=== PATIENT | female | born 1960 | race Caucasian/White ===

== ENCOUNTER 2024-08-25 16:56 | Emergency (ER) | payer MEDICAID, SELFPAY ==
[2024-08-25 16:56] VITALS: BMI 24.3
[2024-08-25 17:09] VITALS: BP 97/68; PULSE 90; RESP 20; TEMP 37.6; O2SAT 96
--- NOTE | 2024-08-25 17:12 | XR_ITS ---
Examination: PA lateral chest 2 views Technique: Upright PA lateral chest 2 views Exam date and time: August 25, 2024 1722 hrs. Indications: Chest pain today Findings: Mild prominence of ventricle Mild opacity in the lingular segment Mild vascular congestion No ele pulmonary edema Impression: Scarring versus mild pneumonia in the lingular segment left upper lobe, the appearance should be clinically correlated
--- NOTE | 2024-08-25 17:12 | EKG_ITS ---
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: : 1960 Requested By: Herminio López (ZHEN) Order Number: [id number] Reading MD: Herminio López (LOT ATTENDANT) Measurements Intervals [place] Rate: 73 P: 79 WI: 210 QRS: -65 QRSD: 77 T: 74 QT: 348 QTc: 385 Interpretive Statements SINUS RHYTHM WITH FIRST DEGREE AV BLOCK LOW QRS VOLTAGE [QRS DEFLECTION < 0.5/1.0 mV IN LIMB/CHEST LEADS] POSSIBLE RIGHT VENTRICULAR CONDUCTION DELAY [RSR (QR) IN V1/V2] POSSIBLE ANTERIOR MYOCARDIAL INFARCTION , OF INDETERMINATE AGE [30 ms Q WAVE IN V3/V4, OR R < 0.2 mV IN V4] INFERIOR MYOCARDIAL INFARCTION , PROBABLY OLD [40+ ms Q WAVE AND/OR ST/T ABNORMALITY IN II/aVF] Compared to ECG 08/07/2023 23:31:04 First degree AV block now present Low QRS voltage now present Sinus tachycardia no longer present T-wave abnormality no longer present Possible ischemia no longer present Myocardial infarct finding still present /store/S0/[id number].pdf
--- NOTE | 2024-08-25 17:16 | PD.EDRME ---
Rapid Medical Screening Exam RME Arrival date/time: 08/25/24 16:56 64-year-old female presents to the emergency department today for complaints of shortness of breath Chief Complaint: Shortness of Breath/Dyspnea Time Seen by Provider: 08/25/24 17:03 Vital signs: Vital Signs Temperature 99.6 F 08/25/24 17:09 Pulse Rate 90 08/25/24 17:09 Respiratory Rate 20 08/25/24 17:09 Blood Pressure 97/68 08/25/24 17:09 Pulse Oximetry (%) 96 08/25/24 17:09 Oxygen Delivery Method Nasal Cannula 08/25/24 17:09 Oxygen Flow Rate 2 08/25/24 17:09
--- NOTE | 2024-08-25 17:18 | XR_ITS ---
Examination: Venous duplex lower extremity sonogram, bilateral. Date and time of exam: August 25, 2024 at 1750 hrs. Indications: Bilateral leg swelling beginning 3 days ago Technique: Multiple sonographic images of the deep venous system have been obtained. B-mode/2-D grayscale imaging of vascular structures and Doppler spectral analysis (waveforms) and color performed Both legs are examined. Findings: Deep venous systems do not demonstrate abnormal echogenicity. All visualized deep veins exhibit compressibility. All visualized deep veins exhibit augmentation. Impression: Negative for deep vein thrombosis
[2024-08-25 17:27] LABS: Basophils # (Auto) 0.1 Thou/mm3 (0.0-0.2); Basophils % (Auto) 1 % (0-2.5); Eosinophils # (Auto) 0.2 Thou/mm3 (0.0-0.5); Eosinophils % (Auto) 3 % (0-10); Hemoglobin 9.6 g/dL (12.0-16.0); Immature Granulocytes % (Auto) 0 % (0-0); Immature Granulocytes Auto 0.02 Thou/mm3 (0.00-0.00); Lymphocytes # (Auto) 2.3 Thou/mm3 (1.0-4.8); Lymphocytes % (Auto) 31 % (10-50); Mean Corpuscular HGB Conc 34.3 g/dl (31.0-37.0); Mean Corpuscular Hemoglobin 27.7 pg (25.0-35.0); Mean Corpuscular Volume 81 fL (80-100); Monocytes # (Auto) 0.5 Thou/mm3 (0.0-0.8); Monocytes % (Auto) 7 % (0-12); Neutrophils # (Auto) 4.3 Thou/mm3 (1.8-7.7); Neutrophils % (Auto) 58 % (37-80); Nucleated Red Blood Cell % 0 /100 WBC (0); Platelet Count 250 Thou/mm3 (140-440); RDW Standard Deviation 38.8 fL (36.4-46.3); Red Blood Count 3.47 Miln/mm3 (4.00-5.20); White Blood Count 7.3 Thou/mm3 (3.6-11.0)
[2024-08-25 17:40] LABS: Partial Thromboplastin Time 27.3 Seconds (22.0-36.0); Prothrombin Time 10.6 Seconds (9.0-12.2)
[2024-08-25 17:43] LABS: B-Type Natriuretic Peptide 92 pg/mL (0-100)
[2024-08-25 17:45] LABS: Alanine Aminotransferase 11 U/L (10-49); Albumin/Globulin Ratio 1.7 (1.2-2.2); Alkaline Phosphatase 72 U/L (46-116); Anion Gap 8 (7-16); Aspartate Amino Transferase 22 U/L (0-34); BUN/Creatinine Ratio 19 Ratio (12-20); Bilirubin,Total 0.3 mg/dL (0.3-1.2); Blood Urea Nitrogen 30 mg/dL (9-23); Calcium 8.8 mg/dL (8.3-10.6); Calcium (Corrected) 8.8 mg/dL (8.5-10.1); Carbon Dioxide 24.5 mMol/L (20.0-31.0); Chloride 106 mMol/L (98-107); Creatinine (Component) 1.6 mg/dL (0.6-1.3); Estimated Creatinine Clearance 36.3 mL/min (>60); Globulin 2.4 gm/dL (2.3-3.5); Glucose 131 mg/dL (74-106); Osmolality,Calculated 283 (275-295); Potassium 4.4 mMol/L (3.4-5.1); Sodium 138 mMol/L (136-145); Total Protein 6.4 gm/dL (5.7-8.2); Troponin I < 0.020 ng/mL (0.0-0.045); eGFR 36 See Note
--- NOTE | 2024-08-25 19:21 | PD.EDSOB ---
ED SOB =RME/HPI General Chief Complaint: Shortness of Breath/Dyspnea Stated Complaint: CANT BREATHE, O2 AT 90% CHEST FEELS HEAVY Time Seen by Provider: 08/25/24 17:03 Arrival date/time: 08/25/24 16:56 RME / HPI RME / HPI Narrative: 08/25/24 16:56 64-year-old female presents to the emergency department today for complaints of shortness of breath This section includes all my notes and documentations, including HPI, PE, and ED course. Trever Betancourt MD HPI: 64 year old female here with a week of worsening cough, productive cough, purulent sputum, and dyspnea. With subjective fever, chills, aches, and malaise. No chest pain. No other complaints. ROS: All negative except as documented in HPI. Physical Exam: General: Alert and oriented. Hacking cough noted. Eyes: Conjunctivae and lids clear. ENT: No nasal congestion. Neck: Supple. Heart: RRR. Lungs: No respiratory distress. Moderate decreased air movement with rhonchi and rales. Legs: No clubbing, cyanosis, edema. Skin: Warm and dry. Neuro: Alert and oriented X 3. I reviewed all diagnostic test results. My interpretation of the EKG is sinus sinus rhythm with no ST-T changes. My interpretation of the chest x-ray is increased bronchial markings. Blood tests unremarkable. Covid and Influenza negative. At this point, diagnoses include COPD exacerbation and pneumonia. Treatment here included Rocephin, NS, Azithromycin, Duoneb, and Methylprednisolone. Significant improvement noted. Recommended outpatient treatment. Based on my best medical judgment, made decision no further evaluation or treatment indicated at this time. Patient understands and agrees to the discharge instructions customized and printed, see below. Discharge instructions from Dr. Betancourt: --No physical exertion for 3 days to help rest the lungs. ?No smoking or exposure to smoking or pets or dust or cold or humidity. --Zithromax and cefdinir to kill the germs causing the pneumonia. --Prednisone to help decrease the swelling in the airways. --Albuterol 2 puffs or neb treatment every 4-6 hours for 3 days to help keep the airways open. Then as needed for cough or shortness of breath. --See a private doctor next week for recheck if not completely better. --Seek immediate medical care with worsening or with any concerns. Trever Betancourt MD Related Data Home Medications ?Medication ?Instructions ?Recorded ?Confirmed ipratropium 20 mcg-albuterol 100 1 puff inhalation Q4H PRN Wheezing 05/02/23 08/06/23 mcg/actuation mist for inhalation (Combivent Respimat) albuterol sulfate 90 mcg/actuation 1 puff inhalation PRN PRN RESCUE 08/06/23 08/06/23 aerosol inhaler INHALER apixaban 5 mg tablet (Eliquis) 5 mg PO BID 08/06/23 08/06/23 clonidine HCl 0.1 mg tablet 0.1 mg PO DAILY 08/06/23 08/06/23 Held on 08/12/23. Instructions: Resume on 08/19/23. BP controlled, started Entresto Previous Rx's ?Medication ?Instructions ?Recorded fluticasone fur. 100 mcg-umeclid 1 inh inhalation QDAY 30 days #60 05/08/23 62.5 mcg-vilant 25 mcg ea inhalat.powder (Trelegy Ellipta) azithromycin 500 mg tablet 500 mg PO QDAY 3 days #3 tabs 08/25/24 (Zithromax TRI-SNOW) cefdinir 300 mg capsule 300 mg PO BID #14 caps 08/25/24 prednisone 50 mg tablet 50 mg PO BID 3 days #6 tabs 08/25/24 Allergies Allergy/AdvReac Type Severity Reaction Status Date / Time blueberry Allergy Verified 08/25/24 16:59 coconut Allergy Verified 08/25/24 16:59 Review of Systems Review of Systems Systems Reviewed: All systems reviewed, normal except as documented Past Medical History Past Medical History NEUROLOGIC: Negative Seizures CARDIAC: Positive Peripheral Vascular Disease (pain and decreased blood flow to legs) and Hypertension; Negative Congestive Heart Failure or Hypotension RESPIRATORY: Positive Chronic Obstructive Pulmonary Disease (COPD) GENITOURINARY: Negative Renal Disease ENDOCRINE: Negative Diabetes Mellitus Type 1 or Diabetes Mellitus Type 2 OTHER HISTORY: Negative Blood Transfusions or Anesthesia Reactions Family History FAMILY HISTORY: Positive Family Cardiac Disorders; Negative Family Psychiatric Problems, Family Respiratory Disorders or Family Gastrointestinal Problems Surgical History SURGICAL: Positive Vascular Surgery (stent to right groin to increase blood flow to leg) and Hysterectomy Social History SMOKING STATUS: Former smoker ED Exam Narrative Physical exam: As noted in HPI. Course Course Course Narrative: CXR is ordered for determining the etiology of shortness of breath. Quality Measures none Orders Category Date Time Status Bedside COVID-19 Antigen Test NOW Care 08/25/24 17:15 Completed Bedside Influenza A&B Antigen Test NOW Care 08/25/24 17:15 Completed EKG (ED ONLY) *Do not use* NOW Care 08/25/24 17:12 Completed Saline [Insert IV] NOW Care 08/25/24 19:28 Completed EKG (ED Only) Stat Exams 08/25/24 17:12 Draft US venous doppler LE BI Stat Exams 08/25/24 17:18 Completed XR chest 2V Stat Exams 08/25/24 17:12 Completed ABG [Arterial Blood Gas] Stat Lab 08/25/24 20:16 Completed B-Type Natriuretic Peptide Stat Lab 08/25/24 17:20 Completed CBC Stat Lab 08/25/24 17:20 Completed Comprehensive Metabolic Panel Stat Lab 08/25/24 17:20 Completed Magnesium Stat Lab 08/25/24 17:20 Completed Partial Thromboplastin Time Stat Lab 08/25/24 17:20 Completed Prothrombin Time with INR Stat Lab 08/25/24 17:20 Completed Troponin I Stat Lab 08/25/24 17:20 Completed Albuterol/Ipratr Rt Nay [Duoneb Rt Nay] Med 08/25/24 19:28 Discontinued 3 ml INH X1 ONE Azithromycin Inj [Zithromax Inj] 500 mg Med 08/25/24 19:28 Discontinued Sodium Chloride 0.9% 250 ml [Ns] 250 ml IV X1 MethylPREDNISolone.* [SoluMEDROL Inj] Med 08/25/24 19:28 Discontinued 125 mg IVP X1 ONE Sodium Chloride 0.9% 1000 ml [Ns] 1,000 ml Med 08/25/24 19:28 Discontinued IV 999 mls/hr cefTRIAXone [Rocephin] 1,000 mg Med 08/25/24 19:28 Discontinued SODIUM CHLORIDE 0.9% (Popper) [Ns 0.9% (P)] 50 ml IV X1 Vital Signs Vital signs: Vital Signs Temperature 99.6 F 08/25/24 17:09 Pulse Rate 90 08/25/24 17:09 Respiratory Rate 20 08/25/24 17:09 Blood Pressure 97/68 08/25/24 17:09 Pulse Oximetry (%) 96 08/25/24 17:09 Oxygen Delivery Method Nasal Cannula 08/25/24 17:09 Oxygen Flow Rate 2 08/25/24 17:09 Shortness of Breath / Dyspnea Patient data External records reviewed:: [facility] previous records (Per chart review, patient was admitted here on 08/06/23 for a fever.) Clinical information provided by:: patient Social determinants that could affect healthcare access:: none Patient has the following chronic illnesses:: COPD, HTN How is presenting disease/condition affected by chronic disease/condition?: exacerbated by Evaluation data The following diagnostics were reviewed and interpreted by me:: lab results, radiology exam(s) and EKG tracing(s) Lab and/or radiology exams considered but not ordered:: none Interpretation Summary: Pneumonia, COPD exacerbation Medications / Prescriptions Medications or Prescriptions considered but not ordered:: none Medication administrations:: Medication Administration History Discontinued Medications Albuterol/Ipratropium (Albuterol/Ipratropium (Duoneb) Rt Nay 3 Ml Nebu) 3 ml INH X1 ONE Stop: 08/25/24 19:29 Last Admin: 08/25/24 19:52 Dose: 3 ml Documented By: DARIAN Ceftriaxone Sodium 1,000 mg/ (Sodium Chloride) 50 mls @ 100 mls/hr IV X1 ONE Stop: 08/25/24 19:57 Last Infusion: 08/25/24 21:09 Dose: Infused Documented By: Admin: 08/25/24 20:25 Dose: 100 mls/hr Documented By: IRAIS Sodium Chloride (Ns) 1,000 mls @ 999 mls/hr IV .Q1H1M ONE Stop: 08/25/24 20:28 Last Admin: 08/25/24 20:21 Dose: 999 mls/hr Documented By: IRAIS Azithromycin 500 mg/ Sodium (Chloride) 250 mls @ 250 mls/hr IV X1 ONE Stop: 08/25/24 20:27 Last Infusion: 08/25/24 22:19 Dose: Infused Documented By: Admin: 08/25/24 21:08 Dose: 250 mls/hr Documented By: IRAIS Methylprednisolone Sodium Succinate (Methylprednisolone Sod Succ 62.5 Mg/Ml 2ml Vial) 125 mg IVP X1 ONE Stop: 08/25/24 19:29 Last Admin: 08/25/24 20:21 Dose: 125 mg Documented By: JNL Rocephin, NS, Azithromycin, Duoneb, Methylprednisolone Consultations Consultation(s) initiated? (list below): No Diagnosis Shortness of Breath Differential Diagnosis: acute exacerbation of chronic obstructive airways disease, congestive heart failure, community acquired pneumonia, asthma with exacerbation and pulmonary embolism Most likely diagnosis given after review of the tests above:: Pneumonia, COPD exacerbation Admission Indicated Admission indicated?: not indicated Explain why admission is indicated or not indicated:: No criteria for admission. Admission Request Was there a request for admission?: No Disposition Plan Disposition Plan: Discharge Discharge Attestation Discharge Attestation: The patient and all family members were given an opportunity to ask questions and understood the discharge instructions. Discharge instructions specifically effects, indications for sooner follow up or return to the emergency department, and the expected course of current diagnosis. Patient condition: Stable Discharge Plan Plan Patient Disposition: HOME (Self Care) Prescriptions/Referrals Prescriptions/Med Rec: New prednisone 50 mg tablet 50 mg PO BID 3 Days Qty: 6 0RF cefdinir 300 mg capsule 300 mg PO BID Qty: 14 0RF azithromycin [Zithromax TRI-SNOW] 500 mg tablet 500 mg PO QDAY 3 Days Qty: 3 0RF No Action Combivent Respimat 20-100 mcg/actuation Mist 1 puff INHALATION Q4H PRN (Reason: Wheezing) Trelegy Ellipta 100-62.5-25 mcg blister with device 1 inh inhalation QDAY 30 Days Qty: 60 3RF clonidine HCl 0.1 mg tablet 0.1 mg PO DAILY Patient Comments: TAKE 1 TABLET BY MOUTH TWICE A DAY albuterol sulfate 90 mcg/actuation HFA aerosol inhaler 1 puff INHALATION PRN PRN (Reason: RESCUE INHALER ) Patient Comments: INHALE 2 PUFFS EVERY 4 TO 6 HOURS NEEDED Eliquis 5 mg tablet 5 mg PO BID Patient Comments: TAKE 1 TABLET BY MOUTH TWICE A DAY FOR 30 DAYS Referrals: No Primary/Family,Physician [Primary Care Provider] - In 1 week Problem List Clinical Impression: Pneumonia, COPD exacerbation Patient/Caregiver Discharge Instructions Discharge Activity: activity as tolerated Education Materials: ED COPD Flare, ED Pneumonia (Adult) Additional Instructions: Discharge instructions from Dr. Betancourt: --No physical exertion for 3 days to help rest the lungs. ?No smoking or exposure to smoking or pets or dust or cold or humidity. --Zithromax and cefdinir to kill the germs causing the pneumonia. --Prednisone to help decrease the swelling in the airways. --Albuterol 2 puffs or neb treatment every 4-6 hours for 3 days to help keep the airways open. Then as needed for cough or shortness of breath. --See a private doctor next week for recheck if not completely better. --Seek immediate medical care with worsening or with any concerns. Print Language: Citizen Of [place] Stand Alone Forms: [employer] Award Info., Patient Portal Info Letter
[2024-08-25 19:36] VITALS: BP 159/91; PULSE 82; RESP 20; TEMP 36.9; O2SAT 95
[2024-08-25] MEDS: ALBUTEROL/IPRATROPIUM (Duoneb) RT SOL 3 ML NEBU INH (19:52)
[2024-08-25 19:56] VITALS: PULSE 72; RESP 20; O2SAT 98
[2024-08-25] MEDS: MethylPREDNISolone SOD SUCC 62.5 MG/ML 2ML VIAL 125 MG IVP (20:21)
[2024-08-25] MEDS: SODIUM CHLORIDE 0.9% 1000 ML 1,000 ML 999 ML IV (20:21)
[2024-08-25 20:25] LABS: Base Excess 0 (-3-3); HCO3 25 mEq/L (20-26); Inspired Oxygen, FIO2 100 %; O2 Saturation 93 % (91-98); PCO2 44 mmHg (32.0-48.0); PO2 63 mmHg (83-108); pH, Arterial 7.37 (7.35-7.45)
[2024-08-25] MEDS: cefTRIAXone 1,000 MG in SODIUM CHLORIDE 0.9% (Popper) 50 ML 100 MG IV (20:25)
[2024-08-25 20:26] LABS: Allen Test Performed/OK; Puncture Site Right Radial
[2024-08-25] MEDS: AZITHROMYCIN INJ 500 MG in SODIUM CHLORIDE 0.9% 250 ML 250 ML 250 MG IV (21:08)
[2024-08-25 23:10] VITALS: BP 152/82; PULSE 70; RESP 22; TEMP 36.4; O2SAT 96
== END 2024-08-25 23:11 | disposition home or self-care (01) ==
PROVIDERS: Nurse Practitioner Primary Care; Emergency Provider Emergency Medicine
DX: J44.1 Chronic obstructive pulmonary disease with (acute) exacerbation (principal); J18.9 Pneumonia, unspecified organism; J44.0 Chronic obstructive pulmonary disease with (acute) lower respiratory infection; I10 Essential (primary) hypertension; I73.9 Peripheral vascular disease, unspecified; Z95.820 Peripheral vascular angioplasty status with implants and grafts; Z87.891 Personal history of nicotine dependence
CPT/HCPCS: 36415; 36600; 71046; 80053; 82803; 83735; 83880; 84484; 85025; 85610; 85730; 87400; 87811; 93005; 93970; 94640; 96365; 96367; 96375; 99284; A9270; J0456; J0696; J2919; J7030; J7050

== ENCOUNTER 2024-11-30 14:21 | Emergency (ER) | payer MEDICAID, SELFPAY ==
[2024-11-30] VITALS (7 sets, daily range): BP systolic 113–137; BP diastolic 75–95; PULSE 71–115; RESP 15–20; TEMP 36.6–38.8; O2SAT 94–100; BMI 24.5
--- NOTE | 2024-11-30 14:39 | XR_ITS ---
Examination: AP lateral chest 2 views TECHNIQUE: Upright AP lateral chest 2 views November 30, 2024 at 1445 hours INDICATIONS: Coughing shortness of breath today FINDINGS: Normal heart size Moderate hyperexpansion No pneumonia or pulmonary edema IMPRESSION: COPD with moderate hyperexpansion
--- NOTE | 2024-11-30 14:39 | PD.EDRME ---
Rapid Medical Screening Exam RME Arrival date/time: 11/30/24 14:21 64-year-old female with history of COPD presents to the emergency department today for complaints of cough, congestion, fever and generalized bodyaches Sepsis protocol initiated Chief Complaint: Fever Time Seen by Provider: 11/30/24 14:35 Vital signs: Vital Signs Temperature 101.8 F H 11/30/24 14:34 Pulse Rate 115 H 11/30/24 14:34 Respiratory Rate 20 11/30/24 14:34 Blood Pressure 113/75 11/30/24 14:34 Pulse Oximetry (%) 96 11/30/24 14:34 Oxygen Delivery Method Room Air 11/30/24 14:34
[2024-11-30] MEDS: ACETAMINOPHEN 500 MG TABLET 1000 MG PO (14:50)
[2024-11-30 15:11] LABS: Lactate (Lactic Acid) 2.0 mMol/L (0.4-2.0)
[2024-11-30 15:13] LABS: Basophils # (Auto) 0.1 Thou/mm3 (0.0-0.2); Basophils % (Auto) 1 % (0-2.5); Eosinophils # (Auto) 0.0 Thou/mm3 (0.0-0.5); Eosinophils % (Auto) 0 % (0-10); Hematocrit 29.1 % (36.0-46.0); Hemoglobin 9.6 g/dL (12.0-16.0); Immature Granulocytes Auto 0.04 Thou/mm3 (0.00-0.00); Lymphocytes # (Auto) 0.8 Thou/mm3 (1.0-4.8); Lymphocytes % (Auto) 8 % (10-50); Mean Corpuscular HGB Conc 33.0 g/dl (31.0-37.0); Mean Corpuscular Hemoglobin 22.5 pg (25.0-35.0); Mean Corpuscular Volume 68 fL (80-100); Monocytes # (Auto) 0.6 Thou/mm3 (0.0-0.8); Monocytes % (Auto) 6 % (0-12); Neutrophils # (Auto) 8.7 Thou/mm3 (1.8-7.7); Neutrophils % (Auto) 85 % (37-80); Nucleated Red Blood Cell # 0.00 Thou/mm3 (0.00-0.00); Nucleated Red Blood Cell % 0 /100 WBC (0); Platelet Count 346 Thou/mm3 (140-440); RDW Standard Deviation 36.4 fL (36.4-46.3); Red Blood Count 4.27 Miln/mm3 (4.00-5.20); White Blood Count 10.2 Thou/mm3 (3.6-11.0)
[2024-11-30 15:35] LABS: Collection Type, Urine Clean Catch; RBC,Urine 0 /hpf (0-3)
[2024-11-30 15:37] LABS: Alanine Aminotransferase 16 U/L (10-49); Albumin, Serum 4.9 gm/dL (3.4-4.8); Albumin/Globulin Ratio 1.7 (1.2-2.2); Alkaline Phosphatase 87 U/L (46-116); Anion Gap 13 (7-16); Aspartate Amino Transferase 20 U/L (0-34); BUN/Creatinine Ratio 12 Ratio (12-20); Bilirubin,Total 0.5 mg/dL (0.3-1.2); Blood Urea Nitrogen 22 mg/dL (9-23); Calcium 10.1 mg/dL (8.3-10.6); Calcium (Corrected) 10.1 mg/dL (8.5-10.1); Carbon Dioxide 25.5 mMol/L (20.0-31.0); Chloride 104 mMol/L (98-107); Creatinine (Component) 1.9 mg/dL (0.6-1.3); Estimated Creatinine Clearance 30.6 mL/min (>60); Globulin 2.9 gm/dL (2.3-3.5); Glucose 139 mg/dL (74-106); Osmolality,Calculated 288 (275-295); Potassium 4.7 mMol/L (3.4-5.1); Procalcitonin 0.06 ng/ml (0.0-0.49); Sodium 142 mMol/L (136-145); Total Protein 7.8 gm/dL (5.7-8.2); eGFR 29 See Note
[2024-11-30 15:45] LABS: Bacteria,Urine Rare; Bilirubin,Urine Negative (Negative); Blood,Urine Negative (Negative); Clarity,Urine Clear (Clear/Hazy); Color,Urine Lt-Yellow (Lt Yel-Yel); Glucose, Urine Negative (Negative); Ketones,Urine Negative (Negative); Leukocyte Esterase,Urine Negative (Negative); Nitrite,Urine Negative (Negative); PH,Urine 7.0 (5.0-7.0); Protein,Urine Negative (Neg - Trace); Specific Gravity,Urine 1.008 (1.001-1.035); Squamous Epithelial Cell,Urine < 1 /hpf (0-5); Urobilinogen,Urine Negative mg/dL (0.0-1.0); WBC,Urine < 1 /hpf (0-5)
--- NOTE | 2024-11-30 15:46 | PD.EDFEVER ---
ED Fever RME/HPI General Chief Complaint: Fever Stated Complaint: FEVER, ACHES, DIZZY, SOB Time Seen by Provider: 11/30/24 14:35 Arrival date/time: 11/30/24 14:21 RME / HPI RME / HPI Narrative: 11/30/24 14:21 64-year-old female with history of COPD presents to the emergency department today for complaints of cough, congestion, fever and generalized bodyaches Sepsis protocol initiated DR. CONTRERAS MAIN ED EVALUATION: 64 year old female with history of COPD, with use of oxygen PRN, bronchitis, presents to the ED for evaluation of fevers, body aches, cough, and shortness of breath beginning today. Reports yesterday she felt fatigued and had a sore throat otherwise 2 days ago was at her usual state of health. Reports using Albuterol inhalers as needed and did not give herself a treatment today. Denies chest pain, abdominal pain, vomiting, diarrhea, or urinary symptoms. Denies current use of steroids. However, does report history of Prednisone use in the past. Related Data Home Medications ?Medication ?Instructions ?Recorded ?Confirmed ipratropium 20 mcg-albuterol 100 1 puff inhalation Q4H PRN Wheezing 05/02/23 08/06/23 mcg/actuation mist for inhalation (Combivent Respimat) albuterol sulfate 90 mcg/actuation 1 puff inhalation PRN PRN RESCUE 08/06/23 08/06/23 aerosol inhaler INHALER apixaban 5 mg tablet (Eliquis) 5 mg PO BID 08/06/23 08/06/23 clonidine HCl 0.1 mg tablet 0.1 mg PO DAILY 08/06/23 08/06/23 Held on 08/12/23. Instructions: Resume on 08/19/23. BP controlled, started Entresto Previous Rx's ?Medication ?Instructions ?Recorded fluticasone fur. 100 mcg-umeclid 1 inh inhalation QDAY 30 days #60 05/08/23 62.5 mcg-vilant 25 mcg ea inhalat.powder (Trelegy Ellipta) cefdinir 300 mg capsule 300 mg PO BID #14 caps 08/25/24 doxycycline hyclate 100 mg capsule 100 mg PO BID #14 caps 11/30/24 prednisone 50 mg tablet 50 mg PO QDAY #3 tabs 11/30/24 Allergies Allergy/AdvReac Type Severity Reaction Status Date / Time blueberry Allergy Verified 11/30/24 14:22 coconut Allergy Verified 11/30/24 14:22 Review of Systems Review of Systems Systems Reviewed: All systems reviewed, normal except as documented Past Medical History Past Medical History NEUROLOGIC: Negative Seizures CARDIAC: Positive Peripheral Vascular Disease and Hypertension; Negative Congestive Heart Failure or Hypotension RESPIRATORY: Positive Chronic Obstructive Pulmonary Disease (COPD) GENITOURINARY: Negative Renal Disease ENDOCRINE: Negative Diabetes Mellitus Type 1 or Diabetes Mellitus Type 2 OTHER HISTORY: Negative Blood Transfusions or Anesthesia Reactions Family History FAMILY HISTORY: Positive Family Cardiac Disorders; Negative Family Psychiatric Problems, Family Respiratory Disorders or Family Gastrointestinal Problems Surgical History SURGICAL: Positive Vascular Surgery and Hysterectomy Social History SMOKING STATUS: Former smoker Course Quality Measures Current suspected stage: sepsis Possible source: pulmonary Blood cultures ordered: completed in ED Antibiotic ordered: Yes Pertinent labs: 11/30/24 14:45 Lactic Acid 2.0 mMol/L (0.4-2.0) Procalcitonin 0.06 ng/ml (0.0-0.49) sepsis Orders Category Date Time Status Bedside COVID-19 Antigen Test NOW Care 11/30/24 14:39 Active Bedside Influenza A&B Antigen Test NOW Care 11/30/24 14:39 Completed XR chest 2V Stat Exams 11/30/24 14:39 Completed Blood Culture (Lab) Stat Lab 11/30/24 15:06 Received CBC Stat Lab 11/30/24 14:45 Completed Comprehensive Metabolic Panel Stat Lab 11/30/24 14:45 Completed Lactate (Lactic Acid) Stat Lab 11/30/24 14:45 Completed Procalcitonin Stat Lab 11/30/24 14:45 Completed Urinalysis Stat Lab 11/30/24 15:25 Completed Urine Culture Stat Lab 11/30/24 15:25 Received Acetaminophen Tab [Tylenol ES Tab] Med 11/30/24 14:39 Discontinued 1,000 mg PO X1 ONE Azithromycin Po [Zithromax PO] Med 11/30/24 15:47 Discontinued 500 mg PO X1 ONE MethylPREDNISolone.* [SoluMEDROL Inj] Med 11/30/24 15:47 Discontinued 125 mg IVP X1 ONE Sodium Chloride 0.9% 1000 ml [Ns] 1,000 ml Med 11/30/24 15:49 Active IV 500 mls/hr cefTRIAXone/D5w 1gm IV premix [Rocephin/D5w 1gm IV Med 11/30/24 15:47 Discontinued premix] 1 gm in 50 ml IV X1 Vital Signs Vital signs: Vital Signs Temperature 101.8 F H 11/30/24 14:34 Pulse Rate 115 H 11/30/24 14:34 Respiratory Rate 20 11/30/24 14:34 Blood Pressure 113/75 11/30/24 14:34 Pulse Oximetry (%) 96 11/30/24 14:34 Oxygen Delivery Method Room Air 11/30/24 14:34 Pulse ox is 96% on room air which is adequate. Fever MDM Narrative MDM Narrative:: IBev, am scribing for and in the presence of Dr. Contreras. Patient denied any chest pain. I interpreted all labs. There is no leukocytosis. Chest x-ray showed no obvious infiltrate. I do not believe this patient to be septic. She was describing fevers and in fact was febrile here in the emergency room. She does have a history of COPD. She states that she no longer smokes cigarettes. Based on her history of COPD it was thought prudent to give the patient Rocephin 1 g IV and azithromycin 500 mg IV. She was hydrated with 500 cc of IV normal saline. She was given Tylenol 1 g p.o. for fever. She was also given Solu-Medrol 125 mg IV and a breathing treatment consisting of 2.5 mg of albuterol and 0.5 mg of Atrovent x 1. She has a nebulizer machine at home. She is to use that machine. Prednisone and doxycycline as prescribed. She is to continue not to smoke. Follow-up with her doctor. Return to ER as needed or if condition worsens. Patient data External records reviewed:: [facility] previous records Clinical information provided by:: patient Social determinants that could affect healthcare access:: none Patient has the following chronic illnesses:: COPD, bronchitis, hx of pneumonia How is presenting disease/condition affected by chronic disease/condition?: exacerbated by Evaluation data The following diagnostics were reviewed and interpreted by me:: lab results and radiology exam(s) Lab and/or radiology exams considered but not ordered:: None Interpretation Summary: Ordering Physician: Maribel NELSON)Herminio NP Date of Service: 11/30/24 Procedure(s): XR chest 2V Accession Number(s): [id number] cc: Maribel (ZHEN),Herminio BROTH SETTER; Bryce Avila MD~ Examination: AP lateral chest 2 views TECHNIQUE: Upright AP lateral chest 2 views November 30, 2024 at 1445 hours INDICATIONS: Coughing shortness of breath today FINDINGS: Normal heart size Moderate hyperexpansion No pneumonia or pulmonary edema IMPRESSION: COPD with moderate hyperexpansion Dictated By: Bryce Avila MD Signed By: <Electronically signed by Bryce Avila MD in OV> 11/30/24 1506 Medications / Prescriptions Medications or Prescriptions considered but not ordered:: None Medication administrations:: Medication Administration History Sodium Chloride (Ns) 1,000 mls @ 500 mls/hr IV .Q2H ONE Stop: 11/30/24 17:48 Last Admin: 11/30/24 16:53 Dose: 500 mls/hr Documented By: MARLEY Discontinued Medications Acetaminophen (Acetaminophen 500 Mg Tablet) 1,000 mg PO X1 ONE Stop: 11/30/24 14:40 Last Admin: 11/30/24 14:50 Dose: 1,000 mg Documented By: PELON Azithromycin (Azithromycin 250 Mg Tablet) 500 mg PO X1 ONE Stop: 11/30/24 15:48 Last Admin: 11/30/24 16:01 Dose: 500 mg Documented By: MARLEY Ceftriaxone Sodium/Dextrose (Rocephin/D5w 1gm Iv Premix) 1 gm in 50 mls @ 100 mls/hr IV X1 ONE Stop: 11/30/24 16:16 Last Admin: 11/30/24 16:53 Dose: 100 mls/hr Documented By: MARLEY Methylprednisolone Sodium Succinate (Methylprednisolone Sod Succ 62.5 Mg/Ml 2ml Vial) 125 mg IVP X1 ONE Stop: 11/30/24 15:48 Last Admin: 11/30/24 16:44 Dose: 125 mg Documented By: MARLEY See above Consultations Consultation(s) initiated? (list below): No Diagnosis Fever Differential Diagnosis: fever of unknown origin, community acquired pneumonia, viral infection, sepsis and influenza Most likely diagnosis given after review of the tests above:: Pneumonia Admission Indicated Admission indicated?: not indicated Admission Request Was there a request for admission?: No Disposition Plan Disposition Plan: Discharge Discharge Attestation Discharge Attestation: The patient and all family members were given an opportunity to ask questions and understood the discharge instructions. Discharge instructions specifically effects, indications for sooner follow up or return to the emergency department, and the expected course of current diagnosis. Patient condition: Stable Discharge Plan Plan Patient Disposition: HOME (Self Care) Prescriptions/Referrals Prescriptions/Med Rec: New doxycycline hyclate 100 mg capsule 100 mg PO BID Qty: 14 0RF prednisone 50 mg tablet 50 mg PO QDAY Qty: 3 0RF No Action Combivent Respimat 20-100 mcg/actuation Mist 1 puff INHALATION Q4H PRN (Reason: Wheezing) Trelegy Ellipta 100-62.5-25 mcg blister with device 1 inh inhalation QDAY 30 Days Qty: 60 3RF cefdinir 300 mg capsule 300 mg PO BID Qty: 14 0RF clonidine HCl 0.1 mg tablet 0.1 mg PO DAILY Patient Comments: TAKE 1 TABLET BY MOUTH TWICE A DAY albuterol sulfate 90 mcg/actuation HFA aerosol inhaler 1 puff INHALATION PRN PRN (Reason: RESCUE INHALER ) Patient Comments: INHALE 2 PUFFS EVERY 4 TO 6 HOURS NEEDED Eliquis 5 mg tablet 5 mg PO BID Patient Comments: TAKE 1 TABLET BY MOUTH TWICE A DAY FOR 30 DAYS Problem List Clinical Impression: Acute exacerbation of chronic obstructive pulmonary disease Patient/Caregiver Discharge Instructions Additional Instructions: Take your medication as prescribed. Continue the albuterol treatments as needed. Follow-up with your doctor. Return to ER as needed or if condition worsens. Print Language: Greek Stand Alone Forms: Arm[employer] Award Info., Patient Portal Info Letter
[2024-11-30] MEDS: AZITHROMYCIN 250 MG TABLET 500 MG PO (16:01)
[2024-11-30] MEDS: MethylPREDNISolone SOD SUCC 62.5 MG/ML 2ML VIAL 125 MG IVP (16:44)
[2024-11-30] MEDS: cefTRIAXone/D5w 1gm IV premix 1 GM/50 ML BAG IV (16:53)
[2024-11-30] MEDS: SODIUM CHLORIDE 0.9% 1000 ML 1,000 ML 500 ML IV (16:53)
== END 2024-11-30 19:13 | disposition home or self-care (01) ==
LOC: SERX 18:23
PROVIDERS: Nurse Practitioner Primary Care; Emergency Provider Emergency Medicine; PCP Physician Assistant
DX: J44.1 Chronic obstructive pulmonary disease with (acute) exacerbation (principal)
CPT/HCPCS: 36415; 71046; 80053; 81001; 83605; 84145; 85025; 87040; 87077; 87086; 87186; 87400; 87811; 96361; 96365; 96375; 99284; J0696; J2919; J7030; A9270

== ENCOUNTER 2024-12-11 10:44 | Inpatient (IN) | payer MEDICAID, SELFPAY ==
[2024-12-11] VITALS (16 sets, daily range): BP systolic 89–111; BP diastolic 52–74; PULSE 57–89; RESP 12–21; TEMP 36.4–37.2; O2SAT 93–100; BMI 24.3
--- NOTE | 2024-12-11 10:51 | EKG_ITS ---
[facility] Test Date: 2024-12-11 Pat Name: СЕРГЕЙ WINTERS Department: Room: - Gender: Female [employer]: : 1960 Requested By: ED Temporary Provider Order Number: [id number] Reading MD: ED Temporary Provider Measurements Intervals [place] Rate: 87 P: 81 [place]: 211 QRS: -62 QRSD: 84 T: 77 QT: 329 QTc: 398 Interpretive Statements SINUS RHYTHM WITH FIRST DEGREE AV BLOCK LEFT AXIS DEVIATION [QRS AXIS < -30] LOW QRS VOLTAGE IN PRECORDIAL LEADS [QRS DEFLECTION < 1.0 mV IN CHEST LEADS] POSSIBLE RIGHT VENTRICULAR CONDUCTION DELAY [RSR (QR) IN V1/V2] POSSIBLE ANTERIOR MYOCARDIAL INFARCTION , PROBABLY OLD [30 ms Q WAVE IN V3/V4, OR R < 0.2 mV IN V4] Compared to ECG 08/25/2024 17:26:16 Left-axis deviation now present Myocardial infarct finding still present /store/S0/[id number]/ecg/[id number].pdf
--- NOTE | 2024-12-11 11:04 | XR_ITS ---
Examination: Chest AP single view Technique one AP portable upright chest single view Date and time: December 11, 2024, 11:53 AM Comparison November 30, 2024 Indication: Chest pain shortness of breath today Findings: Minor prominence left ventricle. No pneumonia or pulmonary edema. Intact osseous structures. Impression: No pneumonia or pulmonary edema
--- NOTE | 2024-12-11 11:04 | PD.EDRME ---
Rapid Medical Screening Exam RME Arrival date/time: 12/11/24 10:44 64-year-old female presents emergency department today for complaint of headache, generalized fatigue and chest pressure Chief Complaint: Chest Pain Vital signs: Vital Signs Temperature 98.9 F 12/11/24 10:53 Pulse Rate 81 12/11/24 10:53 Respiratory Rate 20 12/11/24 10:53 Blood Pressure 89/64 L 12/11/24 10:53 Pulse Oximetry (%) 100 12/11/24 10:53 Oxygen Delivery Method Room Air 12/11/24 10:53
[2024-12-11] MEDS: ONDANSETRON ODT 4 MG TABRAP PO (11:36)
[2024-12-11 12:04] LABS: Collection Type, Urine Clean Catch
[2024-12-11 12:14] LABS: Bilirubin,Urine Negative (Negative); Blood,Urine Negative (Negative); Clarity,Urine Clear (Clear/Hazy); Color,Urine Yellow (Lt Yel-Yel); Glucose, Urine Negative (Negative); Ketones,Urine Negative (Negative); Leukocyte Esterase,Urine Negative (Negative); Nitrite,Urine Negative (Negative); PH,Urine 6.0 (5.0-7.0); Protein,Urine Negative (Neg - Trace); RBC,Urine 4 /hpf (0-3); Specific Gravity,Urine 1.012 (1.001-1.035); Squamous Epithelial Cell,Urine 1 /hpf (0-5); Urobilinogen,Urine Negative mg/dL (0.0-1.0); WBC,Urine 2 /hpf (0-5)
[2024-12-11 12:21] LABS: Lactate (Lactic Acid) 1.7 mMol/L (0.4-2.0)
[2024-12-11 12:26] LABS: Basophils # (Auto) 0.1 Thou/mm3 (0.0-0.2); Basophils % (Auto) 1 % (0-2.5); Eosinophils # (Auto) 0.2 Thou/mm3 (0.0-0.5); Eosinophils % (Auto) 2 % (0-10); Hematocrit 26.6 % (36.0-46.0); Immature Granulocytes Auto 0.04 Thou/mm3 (0.00-0.00); Lymphocytes # (Auto) 2.9 Thou/mm3 (1.0-4.8); Lymphocytes % (Auto) 25 % (10-50); Mean Corpuscular HGB Conc 31.2 g/dl (31.0-37.0); Mean Corpuscular Hemoglobin 21.9 pg (25.0-35.0); Mean Corpuscular Volume 70 fL (80-100); Monocytes # (Auto) 0.7 Thou/mm3 (0.0-0.8); Monocytes % (Auto) 6 % (0-12); Neutrophils # (Auto) 7.8 Thou/mm3 (1.8-7.7); Neutrophils % (Auto) 67 % (37-80); Nucleated Red Blood Cell # 0.00 Thou/mm3 (0.00-0.00); Nucleated Red Blood Cell % 0 /100 WBC (0); Platelet Count 471 Thou/mm3 (140-440); RDW Standard Deviation 38.9 fL (36.4-46.3); Red Blood Count 3.79 Miln/mm3 (4.00-5.20); White Blood Count 11.8 Thou/mm3 (3.6-11.0)
[2024-12-11 12:29] LABS: Hemoglobin 8.3 g/dL (12.0-16.0)
[2024-12-11 12:48] LABS: INR 1.0 (0.9-1.3); Partial Thromboplastin Time 28.1 Seconds (22.0-36.0); Prothrombin Time 11.0 Seconds (9.0-12.2)
[2024-12-11 12:51] LABS: B-Type Natriuretic Peptide 35 pg/mL (0-100)
[2024-12-11 13:03] LABS: Alanine Aminotransferase 8 U/L (10-49); Albumin, Serum 4.2 gm/dL (3.4-4.8); Albumin/Globulin Ratio 1.4 (1.2-2.2); Alkaline Phosphatase 81 U/L (46-116); Anion Gap 10 (7-16); Aspartate Amino Transferase 14 U/L (0-34); BUN/Creatinine Ratio 17 Ratio (12-20); Bilirubin,Total 0.4 mg/dL (0.3-1.2); Blood Urea Nitrogen 33 mg/dL (9-23); Calcium 9.6 mg/dL (8.3-10.6); Calcium (Corrected) 9.6 mg/dL (8.5-10.1); Carbon Dioxide 26.6 mMol/L (20.0-31.0); Chloride 105 mMol/L (98-107); Creatinine (Component) 2.0 mg/dL (0.6-1.3); Estimated Creatinine Clearance 29.0 mL/min (>60); Globulin 2.9 gm/dL (2.3-3.5); Glucose 106 mg/dL (74-106); Magnesium 2.2 mg/dL (1.6-2.6); Osmolality,Calculated 290 (275-295); Potassium 5.2 mMol/L (3.4-5.1); Procalcitonin 0.04 ng/ml (0.0-0.49); Sodium 142 mMol/L (136-145); Total Protein 7.1 gm/dL (5.7-8.2); Troponin I < 0.020 ng/mL (0.0-0.045); eGFR 28 See Note
--- NOTE | 2024-12-11 14:51 | PD.EDADULT ---
ED General RME/HPI General Chief complaint: Chest Pain Stated complaint: DIZZY/COUGH/CXP x 1 WK, ABNORMAL LABS DONE FRIDAY Time Seen by Provider: 12/11/24 14:38 Arrival date/time: 12/11/24 10:44 RME / HPI RME / HPI narrative: 64-year-old female patient with significant history of chronic A-fib, COPD, hypertension, currently taking Plavix aspirin and Eliquis, came in for evaluation regarding dizziness, generalized body weakness, cough, chest pain, has been ongoing for the last 1 week, getting worse. Patient was seen here more than a week ago and was sent home with a diagnosis of COPD exacerbation. Patient denies any vomiting blood denies any blood in the stool. Denies any abdominal pain. Denies any other complaints no medications taken prior to arrival. Patient never had endoscopy or colonoscopy in the past. Related Data Home Medications ?Medication ?Instructions ?Recorded ?Confirmed ipratropium 20 mcg-albuterol 100 1 puff inhalation Q4H PRN Wheezing 05/02/23 08/06/23 mcg/actuation mist for inhalation (Combivent Respimat) albuterol sulfate 90 mcg/actuation 1 puff inhalation PRN PRN RESCUE 08/06/23 08/06/23 aerosol inhaler INHALER apixaban 5 mg tablet (Eliquis) 5 mg PO BID 08/06/23 08/06/23 clonidine HCl 0.1 mg tablet 0.1 mg PO DAILY 08/06/23 08/06/23 Held on 08/12/23. Instructions: Resume on 08/19/23. BP controlled, started Entresto Previous Rx's ?Medication ?Instructions ?Recorded fluticasone fur. 100 mcg-umeclid 1 inh inhalation QDAY 30 days #60 05/08/23 62.5 mcg-vilant 25 mcg ea inhalat.powder (Trelegy Ellipta) cefdinir 300 mg capsule 300 mg PO BID #14 caps 08/25/24 doxycycline hyclate 100 mg capsule 100 mg PO BID #14 caps 11/30/24 prednisone 50 mg tablet 50 mg PO QDAY #3 tabs 11/30/24 Allergies Allergy/AdvReac Type Severity Reaction Status Date / Time blueberry Allergy Severe Vomiting Verified 12/11/24 10:49 coconut Allergy Severe Vomiting Verified 12/11/24 10:49 Review of Systems Review of Systems Narrative Review of Systems: Review of system reviewed and within normal limits except mentioned in HPI ED Exam Narrative Physical exam: VITAL SIGNS: Reviewed. GENERAL APPEARANCE: Alert and interactive, follows commands, no acute distress, HEAD AND FACE: Non-traumatic. ENT: PERRL, pale conjunctiva, eyelid no trauma, Mucous membrane moist. NECK: Supple, nontender, no nuchal rigidity. CHEST: No tenderness, no crepitus, no paradoxical movement, no retractions. LUNGS: Clear, well ventilated, symmetric, no rales, no wheezing, no ronchi, no stridor, good breath sounds bilaterally. HEART: Regular rate, regular rhythm, no murmur, no gallops. ABDOMEN: Soft, positive bowel sounds, nondistended, no guarding, nontender, no rebound, no masses, RECTAL: Deferred. GENITAL: Deferred. NEUROLOGICAL: Gross motor function intact sensory function intact, Appropriate for age. MUSCULOSKELETAL: low back nontender, full range of motion. EXTREMITIES: Nontender, full range of motion. SKIN: Color pale, dry, no rash, no lacerations, no abrasions, no contusions. LYMPHATICS: Deferred. Course Quality Measures none Orders Category Date Time Status Bedside COVID-19 Antigen Test NOW Care 12/11/24 11:03 Active Bedside Influenza A&B Antigen Test NOW Care 12/11/24 11:03 Completed COVID-19 Screening Questionnaire NOW Care 12/11/24 15:11 Active Brush Sander NOW Care 12/11/24 11:03 Active Decision to Admit X1 Care 12/11/24 15:11 Active EKG (ED ONLY) *Do not use* NOW Care 12/11/24 10:51 Completed Transfuse,blood/blood products ONCE Care 12/11/24 14:49 Active Consult to Gastroenterology Stat Cons 12/11/24 14:57 Ordered EKG (ED Only) Stat Exams 12/11/24 10:51 Draft XR chest 1V portable Stat Exams 12/11/24 11:04 Completed B-Type Natriuretic Peptide Stat Lab 12/11/24 12:15 Completed Blood Culture (Lab) Stat Lab 12/11/24 12:15 Received CBC Stat Lab 12/11/24 12:15 Completed Comprehensive Metabolic Panel Stat Lab 12/11/24 12:15 Completed Lactic Acid [Lactate (Lactic Acid)] Stat Lab 12/11/24 12:15 Completed Magnesium Stat Lab 12/11/24 12:15 Completed Partial Thromboplastin Time Stat Lab 12/11/24 12:15 Completed Procalcitonin Stat Lab 12/11/24 12:15 Completed Prothrombin Time with INR Stat Lab 12/11/24 12:15 Completed Troponin I Stat Lab 12/11/24 12:15 Completed Type and Screen Stat Lab 12/11/24 12:15 Results Urinalysis Stat Lab 12/11/24 11:37 Completed prbc [Red Blood Cells] Stat Lab 12/11/24 12:15 Results Ondansetron Odt [Zofran Odt] Med 12/11/24 11:22 Discontinued 4 mg PO X1 ONE Pantoprazole Inj [Protonix Inj] Med 12/11/24 14:49 Discontinued 80 mg IVP X1 ONE cefTRIAXone/D5w 1gm IV premix [Rocephin/D5w 1gm IV Med 12/11/24 14:57 Active premix] 1 gm in 50 ml IV X1 Vital Signs Vital signs: Vital Signs Temperature 98.9 F 12/11/24 10:53 Pulse Rate 81 12/11/24 10:53 Respiratory Rate 20 12/11/24 10:53 Blood Pressure 89/64 L 12/11/24 10:53 Pulse Oximetry (%) 100 12/11/24 10:53 Oxygen Delivery Method Room Air 12/11/24 10:53 Discharge Plan Plan Patient Disposition: Admit Acute Care w/in Hospital Discharge Disposition comment: Stable Prescriptions/Referrals Prescriptions/Med Rec: No Action Combivent Respimat 20-100 mcg/actuation Mist 1 puff INHALATION Q4H PRN (Reason: Wheezing) Trelegy Ellipta 100-62.5-25 mcg blister with device 1 inh inhalation QDAY 30 Days Qty: 60 3RF cefdinir 300 mg capsule 300 mg PO BID Qty: 14 0RF clonidine HCl 0.1 mg tablet 0.1 mg PO DAILY Patient Comments: TAKE 1 TABLET BY MOUTH TWICE A DAY albuterol sulfate 90 mcg/actuation HFA aerosol inhaler 1 puff INHALATION PRN PRN (Reason: RESCUE INHALER ) Patient Comments: INHALE 2 PUFFS EVERY 4 TO 6 HOURS NEEDED Eliquis 5 mg tablet 5 mg PO BID Patient Comments: TAKE 1 TABLET BY MOUTH TWICE A DAY FOR 30 DAYS doxycycline hyclate 100 mg capsule 100 mg PO BID Qty: 14 0RF prednisone 50 mg tablet 50 mg PO QDAY Qty: 3 0RF Referrals: Rivas Guajardo PA-C [Primary Care Provider] - In 1 week Problem List Clinical Impression: Anemia, Acute upper gastrointestinal bleeding Patient/Caregiver Discharge Instructions Discharge Activity: activity as tolerated Print Language: Divehi Stand Alone Forms: Armida Award Info., Patient Portal Info Letter [facility] Narrative [facility] hospital course: 64-year-old female patient with significant history of chronic A-fib, COPD, hypertension, currently taking Plavix aspirin and Eliquis, came in for evaluation regarding dizziness, generalized body weakness, cough, chest pain, has been ongoing for the last 1 week, getting worse. Patient was seen here more than a week ago and was sent home with a diagnosis of COPD exacerbation. Patient denies any vomiting blood denies any blood in the stool. Denies any abdominal pain. Denies any other complaints no medications taken prior to arrival. Patient never had endoscopy or colonoscopy in the past. Patient's workup today significant for hemoglobin of 8.3 hematocrit to 26.6 patient hemoglobin was noted to be 9.69 days ago. Potassium 5.2 creatinine 2.0 BUN of 33. Urinalysis no UTI. Troponin is normal. I personally reviewed and interpreted the x-ray of this patient. There is no acute abnormalities found, no infiltrates no pneumothorax no hemothorax normal chest x-ray. Review of other structures was without significant abnormal findings also. I additionally reviewed the radiologist report and agree with the interpretation. EKG showed sinus rhythm, ventricular rate of 87 bpm, MN interval 211 MS, no ST segment elevation or depression noted. \Patient received 1 unit of blood transfusion, IV Protonix. I consulted Dr. Alvarado, thank you Dr. Alvarado Clinical Information Provided by patient and family Medical Records Reviewed EMS Meds/Rx Considered, not Ordered None EKG EKG Interpretation narrative: See results [facility] Lab Interpretation Lab(s) interpretation(s): See results in [facility] Medication Administration(s) Medication Administration History Ceftriaxone Sodium/Dextrose (Rocephin/D5w 1gm Iv Premix) 1 gm in 50 mls @ 100 mls/hr IV X1 ONE Stop: 12/11/24 15:26 Last Admin: 12/11/24 15:05 Dose: 100 mls/hr Documented By: VL Discontinued Medications Ondansetron HCl (Ondansetron Odt 4 Mg Tabrap) 4 mg PO X1 ONE; Protocol Stop: 12/11/24 11:23 Last Admin: 12/11/24 11:36 Dose: 4 mg Documented By: Pantoprazole Sodium (Pantoprazole Inj 40 Mg Vial) 80 mg IVP X1 ONE Stop: 12/11/24 14:50 Last Admin: 12/11/24 15:04 Dose: 80 mg Documented By: VL Protonix IV, Zofran, Zyprexa IV and 1 unit of packed RBC Consultations/Discussions re: Management Consult #1: Date/time: 12/11/24 3:14 pm Physician, specialty, service, details: Dr. Alvarado GI specialist thank you DrCynthia Diagnosis Differential diagnosis: Anemia, generalized body weakness COPD, upper GI bleed Most likely dx, and/or detailed dx discussion: Anemia, upper GI bleed Dispositon Disposition: Admit Disposition comments: Spoke with hospitalist, who admitted the patient.
[2024-12-11] MEDS: cefTRIAXone/D5w 1gm IV premix 1 GM/50 ML BAG IV (15:05)
--- NOTE | 2024-12-11 15:39 | PC.NURSE ---
PATIENT IN TO ED FOR DIZZINESS,HEADACHE, FATIGUE, AND LOW BLOOD PRESSURE, WELL CHEST PAIN FOR ABOUT 1 WEEK. PATIENT WAS HERE ABOUT 1 WEEK AGO AND PRESCRIBED ANTIBIOTICS AND STEROIDS FOR PNEUMONIA. PATIENT HAS HISTORY OF HIGH BLOOD PRESSURE, CKD STAGE 3, COPD, AND HYSTERECTOMY. PATIENT USES HOME OXYGEN WHEN NEEDED AT HOME. PATIENT ALERT AND ORIENTED X4. STOOL OCCULT PERFORMED BY TERMITE CONTROL SERVICER NATAN POSITIVE. PATIENT AWARE SHE WILL RECEIVE 1 UNIT PRBCS AND BE ADMITTED TO HOSPITAL. VITALS STABLE. PLAN OF CARE ONGOING
[2024-12-11 16:42] LABS: OBS Card Lot # 0124; OBS Developer Lot # 0424; OBS Performed By LOPEV7; OBS QC OK? Yes; Occult Blood, Stool Positive (Negative)
--- NOTE | 2024-12-11 16:54 | PD.RESHP ---
Documentation for date of: 12/11/24 [facility] History of Present Illness History of present illness: Chief Complaints: Generalized weakness and chest pain 64-year-old female patient with significant history of paroxysmal atrial fibrillation/atrial flutter with RVR, diastolic CHF, COPD, acute hypercapanic and hypoxic respiratory failure, 40yr smoking history, opal, prediabetes, HTN, PAD s/p stents in right knee, hx of alcohol abuse, presented to the ED today on 12/11/2024 due to worsening generalized weakness and chest pain. According to the patient, she has been admitted to the ED on 11/30/2024 for viral infection. She was given antibiotics at her discharge. Her fever went away however her generalized weakness started to grow. About a week ago she started to have a dull upper left chest pain that started to get worsened as days go by. Patient noted that she got her stents placed on her right knee for PAD by her vascular surgeon Dr. Thompson in [place]. She was given Plavix on top of her original medication regimen aspirin and Eliquis for upcoming stent placement on her left knee. A few days ago during preop, she was declined for the surgery due to her declining renal function and worsening anemia. Her daughter told her to visit the ED today for assessment. Patient uses oxygen at home but within the last couple days she was breathing fine without any oxygen. Endorses shortness of breath and nausea. Denies headaches dizziness abdominal pain, dysuria, fevers, or chills. In ED, Hemoglobin of 8.3 hematocrit to 26.6 patient hemoglobin was noted to be 9.69 days ago. Potassium 5.2 creatinine 2.0 BUN of 33. Urinalysis no UTI. Troponin is normal. CXR: There is no acute abnormalities found, no infiltrates no pneumothorax no hemothorax normal chest x-ray. Review of other structures was without significant abnormal findings also. EKG showed sinus rhythm, ventricular rate of 87 bpm, VA interval 211 MS, no ST segment elevation or depression noted. Patient received 1 unit of blood transfusion, IV Protonix. Patient will be admitted for management of acute anemia and possible GI bleed. Medical history: As stated above Surgical history: Right knee stent placement for PAD, Hysterectomy many years ago. Allergies: Blueberry and coconut causing vomiting Medications: Pending official med rec Social history: 40years of smoking history quitted 2 years ago. Patient noted she is social drinker, but per past chart, she has hx of alcohol abuse. No illicit drug use. ROS: All 12 systems assessed and the patient denies unless otherwise stated in HPI Exam Vital Signs Temp Pulse Resp BP Pulse Ox O2 Del Method 98.9 F 77 18 111/61 98 Room Air 12/11/24 10:53 12/11/24 14:26 12/11/24 14:25 12/11/24 14:25 12/11/24 14:25 12/11/24 14:25 Narrative Exam General: No acute distress, well nourished Eye: PERRL, EOMI, normal conjunctiva, no scleral icterus HENT: Normocephalic, atraumatic, hearing intact to conversation at normal volume, moist oral mucosa Neck: Supple, non-tender, no JVD, no lymphadenopathy Lungs: Non-labored respirations, symmetric chest rise, Expiratory wheezing noted. Heart: Peripheral pulses intact bilaterally, Regular Rate and Rhythm Abdomen: Soft, non-tender, non-distended Musculoskeletal: Normal range of motion and strength Skin: Skin is warm, dry, no rashes or lesions. Psychiatric: Cooperative, appropriate mood and affect Neuro: Cranial nerves II-XII grossly intact. Strength 5/5 throughout. Sensations intact to light touch. Results: Labs 12/12/24 04:47 12/12/24 04:47 Labs: Short CBC 12/11/24 Range/Units 12:15 WBC 11.8 H (3.6-11.0) Thou/mm3 Hgb 8.3 L (12.0-16.0) g/dL Hct 26.6 L (36.0-46.0) % Plt Count 471 H D (140-440) Thou/mm3 BMP 12/11/24 12:15 Sodium 142 Potassium 5.2 H Chloride 105 Carbon Dioxide 26.6 BUN 33 H Creatinine 2.0 H Glucose 106 Calcium 9.6 Cardiac Enzymes 12/11/24 Range/Units 12:15 Troponin I < 0.020 (0.0-0.045) ng/mL Liver Function 12/11/24 Range/Units 12:15 Total Bilirubin 0.4 (0.3-1.2) mg/dL AST 14 (0-34) U/L ALT 8 L (10-49) U/L Alkaline Phosphatase 81 (46-116) U/L Albumin 4.2 (3.4-4.8) gm/dL Urine 12/11/24 Range/Units 11:37 Urine Color Yellow (Lt Yel-Yel) Urine Clarity Clear (Clear/Hazy) Urine pH 6.0 (5.0-7.0) Ur Specific [place] 1.012 (1.001-1.035) Urine Protein Negative (Neg - Trace) Urine Glucose (UA) Negative (Negative) Quality Measures Quality Measures none Medications Home Medications and Allergies Home Medications ?Medication ?Instructions ?Recorded ?Confirmed ?Type albuterol sulfate 90 mcg/actuation 1 puff inhalation Q6H PRN RESCUE 08/06/23 12/11/24 History aerosol inhaler INHALER apixaban 5 mg tablet (Eliquis) 5 mg PO BID 08/06/23 12/11/24 History clonidine HCl 0.1 mg tablet 0.1 mg PO DAILY 08/06/23 12/11/24 History Held on 08/12/23. Instructions: Resume on 08/19/23. BP controlled, started Entresto aspirin 81 mg tablet,delayed 81 mg PO QDAY 12/11/24 12/11/24 History release carvedilol 3.125 mg tablet 3.125 mg PO BID 12/11/24 12/11/24 History cetirizine 10 mg tablet 10 mg PO QDAY 12/11/24 12/11/24 History clopidogrel 75 mg tablet 75 mg PO QDAY 12/11/24 12/11/24 History furosemide 40 mg tablet 40 mg PO QDAY 12/11/24 12/11/24 History metoprolol succinate 25 mg 25 mg PO QDAY 12/11/24 12/11/24 History tablet,extended release 24 hr sacubitril 24 mg-valsartan 26 mg 1 tab PO BID 12/11/24 12/11/24 History tablet (Entresto) vitamin B comp no.3-folic acid 1 1 tab PO QDAY 12/11/24 12/11/24 History mg-vit C 60 mg-biotin 300 mcg tablet ([facility]) Allergies Allergy/AdvReac Type Severity Reaction Status Date / Time blueberry Allergy Severe Vomiting Verified 12/11/24 10:49 coconut Allergy Severe Vomiting Verified 12/11/24 10:49 Visit Medications Metoclopramide HCl (Metoclopramide 5 Mg Tablet) 10 mg PO Q6HR PRN PRN Reason: NAUSEA OR VOMITING Stop: 01/10/25 16:43 Pantoprazole Sodium (Pantoprazole 40 Mg Tablet) 40 mg PO Q12HR NANCY Stop: 01/10/25 20:59 Discontinued Medications Ceftriaxone Sodium/Dextrose (Rocephin/D5w 1gm Iv Premix) 1 gm in 50 mls @ 100 mls/hr IV X1 ONE Stop: 12/11/24 15:26 Last Infusion: 12/11/24 15:35 Dose: Infused Ondansetron HCl (Ondansetron Odt 4 Mg Tabrap) 4 mg PO X1 ONE; Protocol Stop: 12/11/24 11:23 Last Admin: 12/11/24 11:36 Dose: 4 mg Pantoprazole Sodium (Pantoprazole Inj 40 Mg Vial) 80 mg IVP X1 ONE Stop: 12/11/24 14:50 Last Admin: 12/11/24 15:04 Dose: 80 mg Assessment & Plan Plan 64-year-old female patient with significant history of paroxysmal atrial fibrillation/atrial flutter with RVR, diastolic CHF, COPD, acute hypercapanic and hypoxic respiratory failure, 40yr smoking history, opal, prediabetes, HTN, PAD s/p stents in right knee, hx of alcohol abuse, was admited for acute anemia and possible GI bleed #Acute anemia, blood loss #Upper vs Lower GI bleed #Worsening Chest pain -Patient did not see any blood in rectum or melena. -On assessment, patient has diffuse abdominal tenderness in upper left quadrant. -FOBT was positive -Troponin was normal and EKG showed sinus rhythm without any ST elevation or depression. -Per ED note, Hemoglobin level was initially 9.69 days ago and dropped to 8.3 on admission. -Patient's vital stable, no signs of hemorrhage. -CXR: No pneumonia or pulmonary edema -GI, Dr. Alvarado consulted by ED physician, recommendation appreciated Plan: -Monitor H&H -Transfuse if hemoglobin less than 7 -Clear liquid diet and NPO after midnight for tentatively scheduled colonoscopy and possible endoscopy for upper GI bleed. -Continue protonix PO 40mg twice daily -Currently NPO -Consider future EGD or colonoscopy #OPAL likely prerenal azotemia 2/2 GI bleed -Patient's creatinine level increased from baseline of 1.3 to 2.0 Plan: -Continue IVF, D5W 50ml/hr #Reactive Leukocytosis -WBC:11.8 -VS UTI, At 11/30 admitted due to UTI, was given doxycyline and later urine culture showed Klebsiella. -Currently, UA does not show any signs of infection Plan: -Continue to monitor #Hx of Paroxysmal afib -Holding eliquis -Pending med reconciliation #Hx of COPD -Duoneb as needed #Intermittent hypotenstion -Midodrine as needed, if SBP<100 Disposition: Medtele for chest pain, acute anemia and possible GI bleed. Diet: NPO GI prophylaxis: Protonix PO 40mg twice daily DVT prophylaxis: SCD Code: Full code Assessment and plan discussed with my attending physician Dr. Leelee Hendrix ([id number]-1)- Internal medicine resident Attending Provider Attestation/Addendum I have examined the patient, reviewed labs and imaging findings, discussed the case with the resident(s), and reviewed entered orders. I agree with the plan of care as outlined in this note, with these additional summaries/recommendations: After examination of the patient and review of the clinical data, I feel that this patient needs admission to the hospital for further treatment and evaluation. Patient is a 64-year-old female with a medical history of COPD, primary hypertension, PAD, HFpEF, hyperlipidemia, and paroxysmal atrial fibrillation presents to [facility] emergency department on 12/11/2024 with nonspecific symptoms of dizziness, generalized body weakness, and intermittent chest pain. Patient seen at bedside. She reports symptoms have been present for 1 week and progressively worsening. On admission hemoglobin noted to be 8.3 down from 9.6 which was 10 days prior. Fecal occult blood test positive in the emergency room. Patient diagnosed with gastrointestinal bleed and symptomatic anemia. She did receive 1 unit of PRBCs in the ED. Start IV Protonix, n.p.o., and as needed antiemetic. No evidence of cirrhosis. Gastroenterology consulted, recommendations appreciated. Discussed holding home Plavix and Eliquis for now. Risks and benefits of holding anticoagulation were explained to patient. Per patient she takes Plavix for peripheral arterial disease and follows vascular Dr. Thompson. Transfuse for hemoglobin less than 7, platelets less than 50, or INR greater than 1.9. Patient also found to have acute kidney injury. On admission creatinine 2.0 and BUN 33. Most likely secondary to prerenal azotemia in the setting of GI bleed. Avoid nephrotoxic agents and renally dose medications. Low-dose IVF. Leukocytosis present although most likely reactive. Patient was seen in the emergency room on 11/30/2024 for urinary tract infection and urine culture grew Klebsiella. Patient was discharged with doxycycline at that time which it is sensitive to. Patient has long history of COPD and continue home MDIs. Patient also endorses chest pain which is most likely secondary to demand ischemia. Troponin with in normal limits and EKG does not reveal any acute ST changes indicative of acute ischemia. We will repeat troponin and EKG if chest pain returns. Plan and assessment discussed with patient and she is in agreement. All questions answered to satisfaction. Please see residents note for additional details management. Dr. Leelee MD
[2024-12-11 17:35] LABS: Troponin I < 0.020 ng/mL (0.0-0.045)
[2024-12-11] MEDS: ALBUTEROL RT 2.5 MG/0.5 ML NEBU 5 MG INH (17:38)
[2024-12-11] MEDS: SODIUM CHLORIDE RT SOL 0.9% 3 ML NEBU INH (17:39)
[2024-12-11] MEDS: FUROSEMIDE INJ 10 MG/ML 4ML VIAL 40 MG IVP (18:41)
--- NOTE | 2024-12-11 20:13 | ESCONSULT_ITS ---
HPI Data of Consult Requesting Physician: Naomi Hendrix, RESIDENT Primary Care Provider: Rivas Guajardo PA-C Consult Narrative Reason for consult: Dropping hemoglobin hematocrit 8.3/26.6 History of present illness: 64 years old female admitted through the emergency room by the physician assistant professor of sociology German for significant drop in hemoglobin hematocrit to 8.3 and 26.6 with a rising BUN/creatinine at 33 and 2.0 and a platelet count of 471,000 Patient has a history of COPD atrial fibrillation on Eliquis and Plavix and essential hypertension She presented to the emergency room with weakness and dizziness but denies any history of hematemesis or hematochezia cc:: cc: RESIDENT Pilar Review of Systems Review of Systems Systems Reviewed: All systems reviewed, normal except as documented Past Medical History Surgical History OTHER SURGICAL HX: As in the history of present illness Meds Home Medications and Allergies Home Medications ?Medication ?Instructions ?Recorded ?Confirmed ?Type ipratropium 20 mcg-albuterol 100 1 puff inhalation Q4H PRN Wheezing 05/02/23 08/06/23 History mcg/actuation mist for inhalation (Combivent Respimat) albuterol sulfate 90 mcg/actuation 1 puff inhalation P RN PRN RESCUE 08/06/23 08/06/23 History aerosol inhaler INHALER apixaban 5 mg tablet (Eliquis) 5 mg PO BID 08/06/23 History clonidine HCl 0.1 mg tablet 0.1 mg PO DAILY 08/06/23 0 08/06/23 History Held on 08/12/23. Instructions: Resume on 08/19/23. BP controlled, started Entresto aspirin 81 mg tablet,delayed mg 12/11/24 History release furosemide 40 mg tablet mg 12/11/24 History metoprolol succinate 25 mg mg PO 12/11/24 History tablet,extended release 24 hr sacubitril 24 mg-valsartan 26 mg tab 12/11/24 History tablet (Entresto) Allergies Allergy/AdvReac Type Severity Reaction Status Date / Time blueberry Allergy Severe Vomiting Verified 12/11/24 10:49 coconut Allergy Severe Vomiting Verified 12/11/24 10:49 Exam Vital Signs Temp Pulse Resp BP Pulse Ox O2 Del Method O2 Flow Rate 98.0 F 60 18 103/64 95 Nasal Cannula 2 12/11/24 19:22 12/11/24 19:22 12/11/24 19:22 12/11/24 19:22 12/11/24 19:22 12/11/24 19:22 12/11/24 19:22 Constitutional Comments: Alert oriented Routine Respiratory Exam Comments: Normal to auscultation Routine Abdominal Exam Comments: Soft nontender Results Labs 12/11/24 20:21 12/11/24 12:15 Labs: Short CBC 12/11/24 Range/Units 12:15 WBC 11.8 H (3.6-11.0) Thou/mm3 Hgb 8.3 L (12.0-16.0) g/dL Hct 26.6 L (36.0-46.0) % Plt Count 471 H D (140-440) Thou/mm3 BMP 12/11/24 12:15 Sodium 142 Potassium 5.2 H Chloride 105 Carbon Dioxide 26.6 BUN 33 H Creatinine 2.0 H Glucose 106 Calcium 9.6 Cardiac Enzymes 12/11/24 12/11/24 Range/Units 12:15 17:09 Troponin I < 0.020 < 0.020 (0.0-0.045) ng/mL Liver Function 12/11/24 Range/Units 12:15 Total Bilirubin 0.4 (0.3-1.2) mg/dL AST 14 (0-34) U/L ALT 8 L (10-49) U/L Alkaline Phosphatase 81 (46-116) U/L Albumin 4.2 (3.4-4.8) gm/dL Urine 12/11/24 Range/Units 11:37 Urine Color Yellow (Lt Yel-Yel) Urine Clarity Clear (Clear/Hazy) Urine pH 6.0 (5.0-7.0) Ur Specific [place] 1.012 (1.001-1.035) Urine Protein Negative (Neg - Trace) Urine Glucose (UA) Negative (Negative) Assessment and Plan Additional Assessment & Plan Additional Plan: Posthemorrhagic anemia Plan Iron panel B12 folate Reticulocyte count Stool for occult blood Consent obtained for fiberoptic esophagogastroduodenoscopy with possible biopsy possible therapeutic intervention under intravenous moderate sedation N.p.o. midnight tonight If the upper endoscopy is negative we will consider doing a fiberoptic colonoscopy after GoLytely prep Other medical problems include COPD Atrial fibrillation on Eliquis and Plavix Essential hypertension Dizziness vertigo weakness most likely due to GI blood losses and low hemoglobin hematocrit Thank you very much for the opportunity to participate in the care of this patient
[2024-12-11 20:30] LABS: Immature Reticulocyte Fraction 24.8 % (3.0-15.9); Reticulocyte % (Auto) 1.4 % (0.5-1.5); Reticulocyte Absolute Auto 60.2 Biln/L (25.0-75.0); Reticulocyte Hgb Content 22.4 pg (28.0-35.0)
[2024-12-11 20:31] LABS: Hematocrit 30.8 % (36.0-46.0); Hemoglobin 9.7 g/dL (12.0-16.0)
[2024-12-11] MEDS: PANTOPRAZOLE 40 MG TABLET PO (22:27)
[2024-12-11] MEDS: DEXTROSE 5%-WATER 1,000 ML 50 ML IV (22:31)
[2024-12-11 23:07] LABS: Troponin I < 0.020 ng/mL (0.0-0.045)
[2024-12-11 23:48] LABS: Iron 42 mcg/dL (50-170); Percent Iron Saturation 12 % (20-55); Total Iron Binding Capacity 341 mcg/dL (250-425); Unsaturated Iron Binding 299 (225-295)
[2024-12-12] VITALS (22 sets, daily range): BP systolic 90–124; BP diastolic 53–82; PULSE 57–110; RESP 13–22; TEMP 36.2–37.6; O2SAT 94–100; BMI 27.3
[2024-12-12 05:54] LABS: Basophils # (Auto) 0.1 Thou/mm3 (0.0-0.2); Basophils % (Auto) 1 % (0-2.5); Eosinophils # (Auto) 0.2 Thou/mm3 (0.0-0.5); Eosinophils % (Auto) 2 % (0-10); Hematocrit 28.4 % (36.0-46.0); Hemoglobin 9.0 g/dL (12.0-16.0); Immature Granulocytes Auto 0.03 Thou/mm3 (0.00-0.00); Lymphocytes # (Auto) 2.2 Thou/mm3 (1.0-4.8); Lymphocytes % (Auto) 24 % (10-50); Mean Corpuscular HGB Conc 31.7 g/dl (31.0-37.0); Mean Corpuscular Hemoglobin 23.2 pg (25.0-35.0); Mean Corpuscular Volume 73 fL (80-100); Monocytes # (Auto) 0.7 Thou/mm3 (0.0-0.8); Monocytes % (Auto) 8 % (0-12); Neutrophils # (Auto) 6.1 Thou/mm3 (1.8-7.7); Neutrophils % (Auto) 66 % (37-80); Nucleated Red Blood Cell # 0.00 Thou/mm3 (0.00-0.00); Nucleated Red Blood Cell % 0 /100 WBC (0); Platelet Count 336 Thou/mm3 (140-440); RDW Standard Deviation 44.9 fL (36.4-46.3); Red Blood Count 3.88 Miln/mm3 (4.00-5.20); White Blood Count 9.3 Thou/mm3 (3.6-11.0)
[2024-12-12 06:18] LABS: INR 1.0 (0.9-1.3); Partial Thromboplastin Time 29.3 Seconds (22.0-36.0); Prothrombin Time 11.0 Seconds (9.0-12.2)
[2024-12-12 06:27] LABS: Alanine Aminotransferase < 7 U/L (10-49); Albumin, Serum 3.8 gm/dL (3.4-4.8); Albumin/Globulin Ratio 1.5 (1.2-2.2); Alkaline Phosphatase 72 U/L (46-116); Anion Gap 8 (7-16); Aspartate Amino Transferase 11 U/L (0-34); BUN/Creatinine Ratio 16 Ratio (12-20); Bilirubin,Total 0.6 mg/dL (0.3-1.2); Blood Urea Nitrogen 31 mg/dL (9-23); Calcium 9.6 mg/dL (8.3-10.6); Calcium (Corrected) 9.8 mg/dL (8.5-10.1); Carbon Dioxide 27.8 mMol/L (20.0-31.0); Chloride 105 mMol/L (98-107); Creatinine (Component) 2.0 mg/dL (0.6-1.3); Estimated Creatinine Clearance 32.3 mL/min (>60); Globulin 2.6 gm/dL (2.3-3.5); Glucose 99 mg/dL (74-106); Magnesium 2.1 mg/dL (1.6-2.6); Osmolality,Calculated 287 (275-295); Phosphorous 4.9 mg/dL (2.4-5.1); Potassium 4.3 mMol/L (3.4-5.1); Sodium 141 mMol/L (136-145); Thyroid Stimulating Hormone 1.21 uIU/mL (0.55-4.78); Total Protein 6.4 gm/dL (5.7-8.2); Troponin I < 0.020 ng/mL (0.0-0.045); eGFR 28 See Note
[2024-12-12] MEDS: FUROSEMIDE INJ 10 MG/ML 4ML VIAL 40 MG IVP (08:12)
[2024-12-12] MEDS: MIDODRINE 5 MG TABLET PO ×2 (11:30→20:17)
--- NOTE | 2024-12-12 13:44 | ESPR_ITS ---
Documentation for date of: 12/12/24 Subjective Subjective Interval history: No acute events overnight. Endorses lower abdominal pain, is able to urinate on her own, denies hematuria. Denies chest pain and shortness of breath. Labs and vitals were reviewed. WBC now within normal limits, likely reactive leukocytosis. Hemoglobin 9.0, improved from admission. BUN and creatinine still elevated, on maintenance fluids. Iron panel indicated likely iron deficiency anemia. There is still concern for upper versus lower GI bleed, GI Dr. Alvarado consulted and plans to do EGD today. Review of systems otherwise negative except what is mentioned above. Exam Vital Signs Temp Pulse Resp BP Pulse Ox O2 Del Method O2 Flow Rate 99.7 F 80 19 90/58 L 96 Nasal Cannula 2 12/12/24 12:00 12/12/24 12:00 12/12/24 12:00 12/12/24 12:00 12/12/24 12:00 12/12/24 12:00 12/12/24 12:00 Narrative Exam Physical Exam General: Awake and in no acute distress. Conversational and non-toxic appearing. HEENT: Normocephalic, atraumatic, mucous membranes moist. Heart: Regular rate and rhythm, normal S1 and S2, no murmurs. Lungs: Clear to auscultation with no wheezing or crackles. Abdomen: Soft, nondistended, positive bowel sounds. Suprapubic tenderness. No guarding or rebound tenderness. Neurologic: Alert and oriented x3, no gross neurological deficit, and patient able to move all 4 extremities. Extremities: No edema. Skin: No rash or ecchymoses. Objective Labs 12/12/24 04:47 12/12/24 04:47 Labs: Laboratory Results - last 24 hr 12/11/24 12/11/24 12/11/24 12:15 14:55 17:09 WBC RBC Hgb Hct MCV MCH MCHC RDW Std Deviation Plt Count Neut % (Auto) Lymph % (Auto) Alfalfa % (Auto) Eos % (Auto) Baso % (Auto) Neut # (Auto) Lymph # (Auto) Alfalfa # (Auto) Eos # (Auto) Baso # (Auto) Immature Gran # (Auto) Absolute Nucleated RBC Immature Gran % Nucleated RBC % Retic Count (auto) Absolute Retic Immature Retic Fraction Retic Hgb Content CHr PT INR APTT Sodium Potassium Chloride Carbon Dioxide Anion Gap BUN Creatinine Estim Creat Clear Calc eGFR BUN/Creatinine Ratio Glucose Calculated Osmolality Calcium Corrected Calcium Phosphorus Magnesium Iron TIBC Iron Saturation Unsat Iron Binding Total Bilirubin AST ALT Alkaline Phosphatase Troponin I < 0.020 Total Protein Albumin Globulin Albumin/Globulin Ratio TSH Stool Occult Blood Positive A Blood Type A Positive Antibody Screen NEGATIVE Crossmatch See Detail Blood Bank Wristband ID Yes 12/11/24 12/11/24 12/11/24 20:21 21:20 22:43 WBC RBC Hgb 9.7 L Hct 30.8 L MCV MCH MCHC RDW Std Deviation Plt Count Neut % (Auto) Lymph % (Auto) Alfalfa % (Auto) Eos % (Auto) Baso % (Auto) Neut # (Auto) Lymph # (Auto) [place]falfa # (Auto) Eos # (Auto) Baso # (Auto) Immature Gran # (Auto) Absolute Nucleated RBC Immature Gran % Nucleated RBC % Retic Count (auto) 1.4 Absolute Retic 60.2 Immature Retic Fraction 24.8 H Retic Hgb Content CHr 22.4 L PT INR APTT Sodium Potassium Chloride Carbon Dioxide Anion Gap BUN Creatinine Estim Creat Clear Calc eGFR BUN/Creatinine Ratio Glucose Calculated Osmolality Calcium Corrected Calcium Phosphorus Magnesium Iron 42 L TIBC 341 Iron Saturation 12 L Unsat Iron Binding 299 H Total Bilirubin AST ALT Alkaline Phosphatase Troponin I < 0.020 Total Protein Albumin Globulin Albumin/Globulin Ratio TSH Stool Occult Blood Blood Type Antibody Screen Crossmatch Blood Bank Wristband ID 12/12/24 04:47 WBC 9.3 RBC 3.88 L Hgb 9.0 L Hct 28.4 L MCV 73 L MCH 23.2 L MCHC 31.7 RDW Std Deviation 44.9 Plt Count 336 D Neut % (Auto) 66 Lymph % (Auto) 24 Alfalfa % (Auto) 8 Eos % (Auto) 2 Baso % (Auto) 1 Neut # (Auto) 6.1 Lymph # (Auto) 2.2 Alfalfa # (Auto) 0.7 Eos # (Auto) 0.2 Baso # (Auto) 0.1 Immature Gran # (Auto) 0.03 H Absolute Nucleated RBC 0.00 Immature Gran % 0 Nucleated RBC % 0 Retic Count (auto) Absolute Retic Immature Retic Fraction Retic Hgb Content CHr PT 11.0 INR 1.0 APTT 29.3 Sodium 141 Potassium 4.3 D Chloride 105 Carbon Dioxide 27.8 Anion Gap 8 BUN 31 H Creatinine 2.0 H Estim Creat Clear Calc 32.3 L eGFR 28 L BUN/Creatinine Ratio 16 Glucose 99 Calculated Osmolality 287 Calcium 9.6 Corrected Calcium 9.8 Phosphorus 4.9 Magnesium 2.1 Iron TIBC Iron Saturation Unsat Iron Binding Total Bilirubin 0.6 AST 11 ALT < 7 L Alkaline Phosphatase 72 Troponin I < 0.020 Total Protein 6.4 Albumin 3.8 Globulin 2.6 Albumin/Globulin Ratio 1.5 TSH 1.21 Stool Occult Blood Blood Type Antibody Screen Crossmatch Blood Bank Wristband ID Quality Measures Quality Measures none Assessment & Plan Assessment Current Active Medications: Generic Name Dose Route Start Last Admin Trade Name Freq PRN Reason Stop Dose Admin Albuterol/Ipratropium 3 ml 12/11/24 17:21 Albuterol/Ipratropium (Duoneb) Rt Nay 3 Ml Nebu INH 01/10/25 17:29 Q8HRRT PRN wheezing Furosemide 40 mg 12/11/24 17:30 12/12/24 08:12 Furosemide Inj 10 Mg/Ml 4ml Vial IVP 01/10/25 17:29 40 mg QDAY NANCY Administration Dextrose 1,000 mls @ 60 mls/hr 12/12/24 11:08 D5w IV 12/13/24 03:47 .[id number] NANCY Metoprolol Succinate 25 mg 12/12/24 09:00 12/12/24 08:07 Metoprolol Succinate Xl 25 Mg Tabcr PO 01/11/25 08:59 Not Given QDAY NANCY Midodrine 5 mg 12/11/24 20:59 12/12/24 11:30 Midodrine 5 Mg Tablet PO 01/10/25 21:59 5 mg TID PRN Administration sbp <100 Ondansetron HCl 4 mg 12/11/24 17:16 Ondansetron Inj 2 Mg/Ml Inj 2 Ml IVP 01/10/25 17:15 Q6HR PRN NAUSEA OR VOMITING Protocol Pantoprazole Sodium 40 mg 12/11/24 21:00 12/12/24 08:08 Pantoprazole 40 Mg Tablet PO 01/10/25 20:59 Not Given Q12HR NANCY Sacubitril/Valsartan 1 tab 12/11/24 21:00 12/12/24 08:08 Sacubitril 24 Mg/Valsartan 26 Mg Tablet PO 01/10/25 20:59 Not Given BID NANCY Sodium Chloride 3 ml 12/11/24 17:23 12/11/24 17:39 Sodium Chloride Rt Nay 0.9% 3 Ml Nebu INH 01/10/25 17:22 3 ml PRN PRN Administration SOLN Plan Patient is a 64-year-old female patient with past medical history of paroxysmal afib on Eliquis, diastolic CHF, COPD, OPAL, prediabetes, HTN, PAD s/p stents in right knee, tobacco and alcohol abuse who presented on 12/11 for low hemoglobin, was admited for acute anemia with concern for upper versus lower GI bleed. #Acute anemia, blood loss - stable #Upper vs Lower GI bleed On admission Hgb was 8.3, improving. Patient reports she might have had black stools a couple weeks ago but did not pay attention. FOBT was positive. Anticipate EGD by Dr. Alvarado today, if no acute bleed will consider colonoscopy. Plan: -Pending EGD today -NPO -Protonix PO 40mg twice daily -GI Dr. Alvarado consulted, appreciate recommendations -Transfuse if hemoglobin less than 7 #Stable angina - resolved Tropnin was negative x3. EKG showed sinus rhythm without any ST elevation or depression. CXR negative for pneumonia or pulmonary edema. -Will continue to monitor for chest pain #OPAL, prerenal Likely prerenal azotemia secondary to GI bleed. On admission, creatinine elevated at 2.0, baseline 1.3. Plan: -Continue IVF, D5W 50ml/hr #Reactive Leukocytosis - resolved On admission, WBC 11.8, now 9.3 (within normal limits). UA negative. CXR negative. Plan: -Continue to monitor #HFrEF (EF 35-40%) (07/2023) #Stage 1 diastolic dysfunction Home medications include Lasix, carvedilol, metoprolol, Entresto. Previous echo 07/2023 showed EF 35-40% with moderate systolic dysfunction. Stage I diastolic dysfunction. Moderate hypokinesis apical, mid to apical anteroseptal and anterolateral myles. Mild MR and TR. Mild to Moderate AI. Mild AV sclerosis without stenosis. - Continue IV Lasix #Hx of Paroxysmal afib -Holding Eliquis due to acute bleed -Pending med reconciliation #Hx of COPD -Duoneb as needed #Intermittent hypotenstion -Midodrine as needed, if SBP<100 Health Maintenance Disposition: Work up for GI bleed, pending EGD and possible colonoscopy DVT prophylaxis: on hold due to bleed GI prophylaxis: Senna Diet: NPO, resume clear liquid diet after CODE STATUS: FULL Patient plan of care was discussed with the attending physician, Dr. Mckoy . Christie Boland, PGY-1 Attending Provider Attestation/Addendum I have examined the patient, reviewed labs and imaging findings, discussed the case with the resident(s), and reviewed entered orders. I agree with the plan of care as outlined in this note, with these additional summaries/recommendations: Patient is a 64-year-old female with a medical history of COPD, primary hypertension, PAD, HFpEF, hyperlipidemia, and paroxysmal atrial fibrillation presents to [facility] emergency department on 12/11/2024 with nonspecific symptoms of dizziness, generalized body weakness, and intermittent chest pain. Patient seen at bedside. No acute overnight events. Patient continues to endorse intermittent lightheadedness and generalized weakness most likely secondary to underlying GI bleed. Patient received 1 unit PRBCs in the emergency room yesterday and hemoglobin today 9.0. Patient has acute blood loss anemia as well as underlying iron deficiency anemia. Acute blood loss anemia secondary to GI bleed. Fecal occult blood test positive. Continue IV Protonix, n.p.o., and antiemetic. Hold all anticoagulation, NSAIDs, steroids, and aspirin. Patient takes Plavix for peripheral arterial disease, Eliquis for paroxysmal atrial fibrillation, and aspirin. We will attempt to contact patient's call center support consultant as patient not a candidate for triple therapy given GI bleed. We will hold these medicines for now and follow-up with GI/cardiology. Transfuse for hemoglobin less than 7, platelets less than 50, or INR greater than 1.5. Patient also found to have acute kidney injury on CKD?. On admission creatinine 2.0 and BUN 33. Most likely secondary to prerenal azotemia in the setting of GI bleed. Avoid nephrotoxic agents and renally dose medications. Low-dose IVF. Leukocytosis resolved. Patient has long history of COPD and continue home MDIs. Patient also endorses chest pain which is most likely secondary to demand ischemia. Troponin with in normal limits and EKG does not reveal any acute ST changes indicative of acute ischemia. We will repeat troponin and EKG if chest pain returns. Plan and assessment discussed with patient and she is in agreement. All questions answered to satisfaction. Please see residents note for additional details management. Dr. Leelee MD
--- NOTE | 2024-12-12 17:50 | SUR.PHASEI ---
Arrived to [facility]. Resting with eyes closed but responds to name. No c/o pain or discomfort. No s/o distress. Responding to questions and commands appropriately.
--- NOTE | 2024-12-12 18:15 | SUR.PHASEI ---
Report given to Angela ZIEGLER med/surg. Transferred to room 373 via [facility]. Able to slide herself over to her bed, chau. well. Call light within reach, brake on, bed in lowest position. Two daughters at bedside. No c/o pain or discomfort, no s/o distress.
--- NOTE | 2024-12-12 18:33 | PC.NURSE ---
Patient just arrived on floor. Patient on a clear liquid diet will start golytely
[2024-12-12] MEDS: NA SU/NAHCO3/KC/PEG (Golytely) 4,000 ML BTL 4000 ML PO (18:44)
[2024-12-12] MEDS: PANTOPRAZOLE 40 MG TABLET PO (20:17)
[2024-12-12 21:55] LABS: Folate > 24.00 ng/mL (>5.38); Vitamin B12 1208 pg/mL (211-911)
[2024-12-13] VITALS (18 sets, daily range): BP systolic 94–156; BP diastolic 41–113; PULSE 56–71; RESP 14–23; TEMP 36.1–36.7; O2SAT 93–100
--- NOTE | 2024-12-13 00:25 | PC.NURSE ---
Notified Dr Tirado of pt measuring a first degree heart block from residential monitor assessment. pt has no complaints of chest pain, dizziness or palpitations. no new orders received.
[2024-12-13] MEDS: DEXTROSE 5%-WATER 1,000 ML 60 ML IV (04:13)
--- NOTE | 2024-12-13 08:53 | PC.NURSE ---
PT ON CLEAR LIQUID DIET, ON GOLYTELY PENDING COLONOSCOPY THIS EVENING. PER DR. MACIEL MEDICATIONS ON HOLD D/T PENDING PROCEDURE.
--- NOTE | 2024-12-13 10:00 | PC.SS ---
Rounding: Pending colonoscopy with Dr. Alvarado, DC plan home.
[2024-12-13 10:04] LABS: Basophils # (Auto) 0.1 Thou/mm3 (0.0-0.2); Basophils % (Auto) 1 % (0-2.5); Eosinophils # (Auto) 0.1 Thou/mm3 (0.0-0.5); Eosinophils % (Auto) 1 % (0-10); Hematocrit 33.4 % (36.0-46.0); Hemoglobin 10.6 g/dL (12.0-16.0); Immature Granulocytes Auto 0.04 Thou/mm3 (0.00-0.00); Lymphocytes # (Auto) 2.4 Thou/mm3 (1.0-4.8); Lymphocytes % (Auto) 28 % (10-50); Mean Corpuscular HGB Conc 31.7 g/dl (31.0-37.0); Mean Corpuscular Hemoglobin 23.0 pg (25.0-35.0); Mean Corpuscular Volume 73 fL (80-100); Monocytes # (Auto) 0.6 Thou/mm3 (0.0-0.8); Monocytes % (Auto) 6 % (0-12); Neutrophils # (Auto) 5.5 Thou/mm3 (1.8-7.7); Neutrophils % (Auto) 64 % (37-80); Nucleated Red Blood Cell # 0.00 Thou/mm3 (0.00-0.00); Nucleated Red Blood Cell % 0 /100 WBC (0); Platelet Count 284 Thou/mm3 (140-440); RDW Standard Deviation 45.4 fL (36.4-46.3); Red Blood Count 4.60 Miln/mm3 (4.00-5.20); White Blood Count 8.7 Thou/mm3 (3.6-11.0)
--- NOTE | 2024-12-13 10:40 | PC.NURSE ---
REPORT GIVEN TO NELIA ZIEGLER, ETA FOR COLONOSCOPY [id number]
--- NOTE | 2024-12-13 11:43 | PC.SS ---
Mallika Ward is a 64-year-old female admitted to Med Surg for Chest Pain. SS conducted bedside contact with the patient to complete initial assessment and to discuss discharge planning. Role and reason explained. Patient confirmed demographic information. Patient identifies daughter Bridgett Ward [phone] as her surrogate decision maker. Pt states she lives with her BF and is able to complete all ADL?s independently. Pt has a walker and O2 provided by [facility]. Pts PCP is Dr. Jackson last visit was about one month ago. Pharmacy of choice is [facility]. Discharge options discussed and the pt wishes to return home.? Family will provide transportation upon DC. No further intervention required at this time, protective services social worker would be available to address any further concerns. DC Plan: Home Contact: Nikki Delacruz Address: Confirmed on face sheet PCP: Or[facility]
--- NOTE | 2024-12-13 11:50 | PC.NURSE ---
POC DISCUSSED AT BEDSIDE WITH MD TEAM. DR. ABBOTT MADE AWARE PT HAS BEEN AJ 48 AND 53, PT ALERT AND ORIENTED X3 ON GOLYTELY FOR COLONOSCOPY. NO NEW ORDERS CONTINUE TO MONITOR.
--- NOTE | 2024-12-13 14:05 | PD.RESPRO ---
Documentation for date of: 12/13/24 Senior resident attestation: Patient evaluated and examined at the bedside, plan of care discussed with rest of the team including my attending physician, except as noted. Quresh PGY3 Subjective Subjective Interval history: No Overnight events. Labs reviewed and patient examined at the bedside. EGD (12/12/2024): Normal esophagus, Few recently bleeding angiodysplastic lesions in the stomach. Treated with bipolar cautery, Normal duodemum. Currently taking Golytely prep. Colonoscopy was schedule for today. Discussed with Dr. Thompson (patient's vascular surgeon in [place]) regarding holding plavix, aspirin, and eliquis in light of recent GI bleed findings. He agreed with holding all three agents. Patient endorses SOB. Denies chest pain, palpitations, abdominal pain, fever, or chills. Exam Vital Signs Temp Pulse Resp BP Pulse Ox O2 Del Method O2 Flow Rate 98.1 F 56 L 18 94/56 L 99 Nasal Cannula 1 12/13/24 12:00 12/13/24 12:12/13/24 12:00 12/13/24 12:00 12/13/24 12:12/13/24 12:12/13/24 12:00 Narrative Exam General: No acute distress, well nourished Eye: PERRL, EOMI, normal conjunctiva, no scleral icterus HENT: Normocephalic, atraumatic, hearing intact to conversation at normal volume, moist oral mucosa Neck: Supple, non-tender, no JVD, no lymphadenopathy Lungs: Non-labored respirations, symmetric chest rise, Expiratory wheezing noted. Heart: Peripheral pulses intact bilaterally, Regular Rate and Rhythm Abdomen: Soft, non-tender, non-distended Musculoskeletal: Normal range of motion and strength Skin: Skin is warm, dry, no rashes or lesions. Psychiatric: Cooperative, appropriate mood and affect Neuro: Cranial nerves II-XII grossly intact. Strength 5/5 throughout. Sensations intact to light touch. Objective Labs 12/14/24 11:48 12/14/24 04:38 Labs: Laboratory Results - last 24 hr 12/11/24 12/13/24 21:20 09:46 WBC 8.7 RBC 4.60 Hgb 10.6 L Hct 33.4 L MCV 73 L MCH 23.0 L MCHC 31.7 RDW Std Deviation 45.4 Plt Count 284 D Neut % (Auto) 64 Lymph % (Auto) 28 [place] % (Auto) 6 Eos % (Auto) 1 Baso % (Auto) 1 Neut # (Auto) 5.5 Lymph # (Auto) 2.4 [place] # (Auto) 0.6 Eos # (Auto) 0.1 Baso # (Auto) 0.1 Immature Gran # (Auto) 0.04 H Absolute Nucleated RBC 0.00 Immature Gran % 1 H Nucleated RBC % 0 Vitamin B12 1208 H Folate > 24.00 Quality Measures Quality Measures none Assessment & Plan Assessment Current Active Medications: Generic Name Dose Route Start Last Admin Trade Name Freq PRN Reason Stop Dose Admin Albuterol/Ipratropium 3 ml 12/11/24 17:21 Albuterol/Ipratropium (Duoneb) Rt Nay 3 Ml Nebu INH 01/10/25 17:29 Q8HRRT PRN wheezing Furosemide 40 mg 12/11/24 17:30 12/13/24 08:49 Furosemide Inj 10 Mg/Ml 4ml Vial IVP 01/10/25 17:29 Not Given QDAY NANCY Dextrose 1,000 mls @ 60 mls/hr 12/13/24 04:15 12/13/24 04:13 D5w IV 12/13/24 20:54 60 mls/hr .[id number] NANCY Administration Metoprolol Succinate 25 mg 12/12/24 09:00 12/13/24 08:52 Metoprolol Succinate Xl 25 Mg Tabcr PO 01/11/25 08:59 Not Given QDAY NANCY Midodrine 5 mg 12/11/24 20:59 12/12/24 20:17 Midodrine 5 Mg Tablet PO 01/10/25 21:59 5 mg TID PRN Administration sbp <100 Ondansetron HCl 4 mg 12/11/24 17:16 Ondansetron Inj 2 Mg/Ml Inj 2 Ml IVP 01/10/25 17:15 Q6HR PRN NAUSEA OR VOMITING Protocol Pantoprazole Sodium 40 mg 12/11/24 21:00 12/13/24 08:52 Pantoprazole 40 Mg Tablet PO 01/10/25 20:59 Not Given Q12HR NANCY Sacubitril/Valsartan 1 tab 12/11/24 21:00 12/13/24 08:52 Sacubitril 24 Mg/Valsartan 26 Mg Tablet PO 01/10/25 20:59 Not Given BID NANCY Sennosides 1 tab 12/12/24 19:32 Senna Tablet PO 01/11/25 19:31 QDAY PRN CONSTIPATION Protocol Sodium Chloride 3 ml 12/11/24 17:23 12/11/24 17:39 Sodium Chloride Rt Nay 0.9% 3 Ml Nebu INH 01/10/25 17:22 3 ml PRN PRN Administration SOLN Plan Patient is a 64-year-old female patient with past medical history of paroxysmal afib on Eliquis, diastolic CHF, COPD, OPAL, prediabetes, HTN, PAD s/p stents in right knee, tobacco and alcohol abuse who presented on 12/11 for low hemoglobin, was admited for acute anemia with concern for upper versus lower GI bleed. #Acute anemia, blood loss - stable #Upper vs Lower GI bleed -On admission Hgb was 8.3, improving. Patient reports she might have had black stools a couple weeks ago but did not pay attention. FOBT was positive. -EGD (12/12/2024): Normal esophagus, Few recently bleeding angiodysplastic lesions in the stomach. Treated with bipolar cautery, Normal duodenum. -Discussed with Dr. Thompson (patient's vascular surgeon in [place]) regarding holding plavix, aspirin, and eliquis in light of recent GI bleed findings. He agreed with holding all three agents. Plan: -NPO -Protonix PO 40mg twice daily -Currently taking Golytely prep. Colonoscopy is schedule for today. -GI Dr. Alvarado consulted, appreciate recommendations -Transfuse if hemoglobin less than 7 #Stable angina - resolved Tropnin was negative x3. EKG showed sinus rhythm without any ST elevation or depression. CXR negative for pneumonia or pulmonary edema. -Will continue to monitor for chest pain #OPAL, prerenal Likely prerenal azotemia secondary to GI bleed. On admission, creatinine elevated at 2.0, baseline 1.3. Plan: -Continue IVF, D5W 50ml/hr #Reactive Leukocytosis - resolved On admission, WBC 11.8, now 9.3 (within normal limits). UA negative. CXR negative. Plan: -Continue to monitor #HFrEF (EF 35-40%) (07/2023) #Stage 1 diastolic dysfunction Home medications include Lasix, carvedilol, metoprolol, Entresto. Previous echo 07/2023 showed EF 35-40% with moderate systolic dysfunction. Stage I diastolic dysfunction. Moderate hypokinesis apical, mid to apical anteroseptal and anterolateral myles. Mild MR and TR. Mild to Moderate AI. Mild AV sclerosis without stenosis. - Continue IV Lasix #Hx of Paroxysmal afib -Holding Eliquis due to acute bleed -Pending med reconciliation #Hx of COPD -Duoneb as needed #Intermittent hypotenstion -Midodrine as needed, if SBP<100 Health Maintenance Disposition: Work up for GI bleed, pending EGD and possible colonoscopy DVT prophylaxis: on hold due to bleed GI prophylaxis: Senna Diet: NPO, resume clear liquid diet after CODE STATUS: FULL Assessment and plan discussed with my attending physician Dr. Mckoy and Dr. Barrientos (PGY-3) Dr. Hendrix (PGY-1)- Internal medicine resident Attending Provider Attestation/Addendum I have examined the patient, reviewed labs and imaging findings, discussed the case with the resident(s), and reviewed entered orders. I agree with the plan of care as outlined in this note, with these additional summaries/recommendations: Patient is a 64-year-old female with a medical history of COPD, primary hypertension, PAD, HFpEF, hyperlipidemia, and paroxysmal atrial fibrillation presents to [facility] emergency department on 12/11/2024 with nonspecific symptoms of dizziness, generalized body weakness, and intermittent chest pain. Patient seen at bedside. No acute overnight events. Patient is status post EGD yesterday which revealed normal esophagus, recently bleeding angiodysplastic lesions in the stomach treated with bipolar cautery, and normal duodenum. Consent was obtained for colonoscopy and patient started on GoLytely which she is seen drinking today. She does not like the taste but has completed roughly 70% of the bottle. Patient has acute blood loss anemia as well as underlying iron deficiency anemia. Acute blood loss anemia secondary to GI bleed. Fecal occult blood test positive. Continue IV Protonix, n.p.o., and antiemetic. Hold all anticoagulation, NSAIDs, steroids, and aspirin. Patient takes Plavix for peripheral arterial disease, Eliquis for paroxysmal atrial fibrillation, and aspirin. We will hold these medicines for now and follow-up with GI/cardiology. Transfuse for hemoglobin less than 7, platelets less than 50, or INR greater than 1.5. Patient also found to have acute kidney injury on CKD?. On admission creatinine 2.0 and BUN 33. Most likely secondary to prerenal azotemia in the setting of GI bleed. Avoid nephrotoxic agents and renally dose medications. Low-dose IVF. Leukocytosis resolved. Patient has long history of COPD and continue home MDIs. Patient also endorses chest pain which is most likely secondary to demand ischemia. Troponin with in normal limits and EKG does not reveal any acute ST changes indicative of acute ischemia. We will repeat troponin and EKG if chest pain returns. Plan and assessment discussed with patient and she is in agreement. All questions answered to satisfaction. Please see residents note for additional details management. Dr. Leelee MD
[2024-12-13 14:26] LABS: Alanine Aminotransferase 10 U/L (10-49); Albumin, Serum 4.3 gm/dL (3.4-4.8); Albumin/Globulin Ratio 1.5 (1.2-2.2); Alkaline Phosphatase 79 U/L (46-116); Anion Gap 12 (7-16); Aspartate Amino Transferase 18 U/L (0-34); BUN/Creatinine Ratio 13 Ratio (12-20); Bilirubin,Total 0.3 mg/dL (0.3-1.2); Blood Urea Nitrogen 25 mg/dL (9-23); Calcium 9.5 mg/dL (8.3-10.6); Calcium (Corrected) 9.5 mg/dL (8.5-10.1); Carbon Dioxide 27.9 mMol/L (20.0-31.0); Chloride 101 mMol/L (98-107); Creatinine (Component) 1.9 mg/dL (0.6-1.3); Estimated Creatinine Clearance 34.0 mL/min (>60); Globulin 2.9 gm/dL (2.3-3.5); Glucose 96 mg/dL (74-106); Magnesium 1.7 mg/dL (1.6-2.6); Osmolality,Calculated 285 (275-295); Phosphorous 3.6 mg/dL (2.4-5.1); Potassium 4.4 mMol/L (3.4-5.1); Sodium 141 mMol/L (136-145); Total Protein 7.2 gm/dL (5.7-8.2); eGFR 29 See Note
[2024-12-13] MEDS: PANTOPRAZOLE 40 MG TABLET PO (21:23)
[2024-12-14] VITALS: BP 111/60; PULSE 58; PULSE 75; RESP 16; TEMP 36.1; O2SAT 100
[2024-12-14 04:00] VITALS: BP 126/66; PULSE 54; PULSE 70; RESP 17; TEMP 36.1; O2SAT 94
[2024-12-14 05:51] LABS: Basophils # (Auto) 0.1 Thou/mm3 (0.0-0.2); Basophils % (Auto) 1 % (0-2.5); Eosinophils # (Auto) 0.1 Thou/mm3 (0.0-0.5); Eosinophils % (Auto) 1 % (0-10); Hematocrit 27.4 % (36.0-46.0); Immature Granulocytes Auto 0.02 Thou/mm3 (0.00-0.00); Lymphocytes # (Auto) 2.2 Thou/mm3 (1.0-4.8); Lymphocytes % (Auto) 29 % (10-50); Mean Corpuscular HGB Conc 32.1 g/dl (31.0-37.0); Mean Corpuscular Hemoglobin 23.4 pg (25.0-35.0); Mean Corpuscular Volume 73 fL (80-100); Monocytes # (Auto) 0.7 Thou/mm3 (0.0-0.8); Monocytes % (Auto) 9 % (0-12); Neutrophils # (Auto) 4.5 Thou/mm3 (1.8-7.7); Neutrophils % (Auto) 59 % (37-80); Nucleated Red Blood Cell # 0.00 Thou/mm3 (0.00-0.00); Nucleated Red Blood Cell % 0 /100 WBC (0); Platelet Count 280 Thou/mm3 (140-440); RDW Standard Deviation 45.4 fL (36.4-46.3); Red Blood Count 3.76 Miln/mm3 (4.00-5.20); White Blood Count 7.5 Thou/mm3 (3.6-11.0)
[2024-12-14 06:04] LABS: Hemoglobin 8.8 g/dL (12.0-16.0)
[2024-12-14 06:32] LABS: Alanine Aminotransferase 7 U/L (10-49); Albumin, Serum 3.6 gm/dL (3.4-4.8); Albumin/Globulin Ratio 1.5 (1.2-2.2); Alkaline Phosphatase 65 U/L (46-116); Anion Gap 10 (7-16); Aspartate Amino Transferase 12 U/L (0-34); BUN/Creatinine Ratio 10 Ratio (12-20); Bilirubin,Total 0.3 mg/dL (0.3-1.2); Blood Urea Nitrogen 15 mg/dL (9-23); Calcium 9.0 mg/dL (8.3-10.6); Calcium (Corrected) 9.3 mg/dL (8.5-10.1); Carbon Dioxide 27.3 mMol/L (20.0-31.0); Chloride 101 mMol/L (98-107); Creatinine (Component) 1.5 mg/dL (0.6-1.3); Estimated Creatinine Clearance 43.0 mL/min (>60); Globulin 2.4 gm/dL (2.3-3.5); Glucose 99 mg/dL (74-106); Magnesium 1.7 mg/dL (1.6-2.6); Osmolality,Calculated 276 (275-295); Phosphorous 3.9 mg/dL (2.4-5.1); Potassium 4.0 mMol/L (3.4-5.1); Sodium 138 mMol/L (136-145); Total Protein 6.0 gm/dL (5.7-8.2); eGFR 39 See Note
[2024-12-14 08:00] VITALS: BP 97/56; PULSE 59; PULSE 85; RESP 17; TEMP 36.2; O2SAT 99
--- NOTE | 2024-12-14 08:49 | PC.NURSE ---
DR. MACIEL MADE AWARE OF PTS BP 103/67 MAP OF 75 AND HR 79, HOLD LASIX AND GIVE TOPROL. ORDER RECEIVED, READ BACK AND CARRIED OUT.
[2024-12-14 08:54] VITALS: BP 103/67; PULSE 79
[2024-12-14] MEDS: METOPROLOL SUCCINATE XL 25 MG TABCR PO (08:54)
[2024-12-14] MEDS: PANTOPRAZOLE 40 MG TABLET PO (08:54)
[2024-12-14 08:55] VITALS: BP 103/67; PULSE 79
--- NOTE | 2024-12-14 11:50 | PD.RESPRO ---
Documentation for date of: 12/14/24 Exam Vital Signs Temp Pulse Resp BP Pulse Ox O2 Del Method O2 Flow Rate 97.1 F 79 17 103/67 99 Nasal Cannula 2 12/14/24 08:00 12/14/24 08:55 12/14/24 08:00 12/14/24 08:55 12/14/24 08:00 12/14/24 08:00 12/14/24 08:00 Objective Labs 12/14/24 04:38 12/14/24 04:38 Labs: Laboratory Results - last 24 hr 12/13/24 12/14/24 09:46 04:38 WBC 7.5 RBC 3.76 L Hgb 8.8 L Hct 27.4 L MCV 73 L MCH 23.4 L MCHC 32.1 RDW Std Deviation 45.4 Plt Count 280 Neut % (Auto) 59 Lymph % (Auto) 29 Davis % (Auto) 9 Eos % (Auto) 1 Baso % (Auto) 1 Neut # (Auto) 4.5 Lymph # (Auto) 2.2 Davis # (Auto) 0.7 Eos # (Auto) 0.1 Baso # (Auto) 0.1 Immature Gran # (Auto) 0.02 H Absolute Nucleated RBC 0.00 Immature Gran % 0 Nucleated RBC % 0 Sodium 141 138 Potassium 4.4 4.0 Chloride 101 101 Carbon Dioxide 27.9 27.3 Anion Gap 12 10 BUN 25 H 15 Creatinine 1.9 H 1.5 H Estim Creat Clear Calc 34.0 L 43.0 L eGFR 29 L 39 L BUN/Creatinine Ratio 13 10 L Glucose 96 99 Calculated Osmolality 285 276 Calcium 9.5 9.0 Corrected Calcium 9.5 9.3 Phosphorus 3.6 3.9 Magnesium 1.7 1.7 Total Bilirubin 0.3 0.3 AST 18 12 ALT 10 7 L Alkaline Phosphatase 79 65 Total Protein 7.2 6.0 Albumin 4.3 D 3.6 D Globulin 2.9 2.4 Albumin/Globulin Ratio 1.5 1.5 Quality Measures Quality Measures none Assessment & Plan Assessment Current Active Medications: Generic Name Dose Route Start Last Admin Trade Name Freq PRN Reason Stop Dose Admin Albuterol/Ipratropium 3 ml 12/11/24 17:21 Albuterol/Ipratropium (Duoneb) Rt Nay 3 Ml Nebu INH 01/10/25 17:29 Q8HRRT PRN wheezing Furosemide 40 mg 12/11/24 17:30 12/14/24 08:55 Furosemide Inj 10 Mg/Ml 4ml Vial IVP 01/10/25 17:29 Not Given QDAY NANCY Metoprolol Succinate 25 mg 12/12/24 09:00 12/14/24 08:54 Metoprolol Succinate Xl 25 Mg Tabcr PO 01/11/25 08:59 25 mg QDAY NANCY Administration Midodrine 5 mg 12/11/24 20:59 12/12/24 20:17 Midodrine 5 Mg Tablet PO 01/10/25 21:59 5 mg TID PRN Administration sbp <100 Ondansetron HCl 4 mg 12/11/24 17:16 Ondansetron Inj 2 Mg/Ml Inj 2 Ml IVP 01/10/25 17:15 Q6HR PRN NAUSEA OR VOMITING Protocol Pantoprazole Sodium 40 mg 12/11/24 21:00 12/14/24 08:54 Pantoprazole 40 Mg Tablet PO 01/10/25 20:59 40 mg Q12HR NANCY Administration Sacubitril/Valsartan 1 tab 12/11/24 21:00 12/13/24 08:52 Sacubitril 24 Mg/Valsartan 26 Mg Tablet PO 01/10/25 20:59 Not Given BID NANCY Sennosides 1 tab 12/12/24 19:32 Senna Tablet PO 01/11/25 19:31 QDAY PRN CONSTIPATION Protocol Sodium Chloride 3 ml 12/11/24 17:23 12/11/24 17:39 Sodium Chloride Rt Nay 0.9% 3 Ml Nebu INH 01/10/25 17:22 3 ml PRN PRN Administration SOLN
[2024-12-14 12:00] VITALS: BP 100/57; PULSE 70; RESP 15; TEMP 36.2; O2SAT 97
[2024-12-14 12:13] LABS: Hematocrit 28.6 % (36.0-46.0); Hemoglobin 9.1 g/dL (12.0-16.0)
--- NOTE | 2024-12-14 13:27 | PD.RESDS ---
Planned Discharge Date 12/14/24 DS: Providers Provider Date of admission: 12/11/24 16:44 Primary care physician: Rivas Guajardo PA-C Admitting Provider: Adonis Mckoy MD Attending Provider on Admission: RESIDENT Pilar Consults: 12/11/24 14:57 Consult to Gastroenterology Stat Comment: Upper GI bleed Consulting Provider: Chery Alvarado Attending Provider on DC: RESIDENT Pilar Discharging Provider: RESIDENT Pilar DS: Diagnosis Problem List Completed Was Problem List Reviewed/Reconciled?: Yes Hospital Course Hospital Course Hospital course: Summary: 64-year-old female patient with significant history of paroxysmal atrial fibrillation/atrial flutter with RVR, diastolic CHF, COPD, acute hypercapanic and hypoxic respiratory failure, 40yr smoking history, opal, prediabetes, HTN, PAD s/p stents in right knee, hx of alcohol abuse, was admitted on 12/11/2024 for management of atypical chest pain, acute anemia, and upper GI bleed. ED Course: In ED, Hemoglobin of 8.3 hematocrit to 26.6 patient hemoglobin was noted to be 9.69 days ago. Potassium 5.2 creatinine 2.0 BUN of 33. Urinalysis no UTI. Troponin is normal. CXR: There is no acute abnormalities found, no infiltrates no pneumothorax no hemothorax normal chest x-ray. Review of other structures was without significant abnormal findings also. EKG showed sinus rhythm, ventricular rate of 87 bpm, ME interval 211 MS, no ST segment elevation or depression noted. Patient received 1 unit of blood transfusion, IV Protonix. Hospital Course: On admission, FOBT was positive. EGD (12/12/2024) showed Normal esophagus, Few recently bleeding angiodysplastic lesions in the stomach. Treated with bipolar cautery, Normal duodemum. Colonoscopy. (12/13/2024) showed Hemorrhoids found on perianal exam. Moderate diverticulosis in the sigmoid colon and in the descending colon. No evidence of diverticlar bleeding. One medium (7-9mm) polyp in the rectum. Patient's OPAL was likely secondary to GI bleed. Was given IVF, D5W 50ml/hr. Patient's creatinine decreased from 2.0 to 1.5 Patients Hgb was 9.1 and Hct was 28.6 before discharge. #Acute anemia, blood loss - stable #Upper vs Lower GI bleed #Stable angina - resolved #OPAL, prerenal #Reactive Leukocytosis - resolved #HFrEF (EF 35-40%) (07/2023) #Stage 1 diastolic dysfunction #Hx of Paroxysmal afib #Hx of COPD #Intermittent hypotenstion #UTI Instructions: -Please take nitrofuratoin 100 mg orally to complete 5 days of antibiotics for UTI. -Midodrine 5 mg, up to three times daily for low blood pressure <120. -Please take iron supplements every other day for your iron deficiency, for the next 1 month. Please re-evaluate in the next 2-3 months. -Continue rest of your medication as prescribed -Please follow up with your primary care provider within one week of discharge -If your symptoms worsen,please seek immediate medical attention and return to your nearest emergency room -If you do not have a primary care provider, you may follow up at the [facility] at [facility] [address], [place] [address], Safe to discharge Home Assessment and plan discussed with my attending physician Dr. Lucina Hendrix (PGY-1)- Internal medicine resident Time Spent with Patient Time attestation: Total time spent providing and/or coordinating discharge services: 36 min Time spent: Greater than 30 minutes Exam Vital Signs Temp Pulse Resp BP Pulse Ox O2 Del Method O2 Flow Rate 97.2 F 70 15 100/57 L 97 Nasal Cannula 1 12/14/24 12:00 12/14/24 12:12/14/24 12:12/14/24 12:12/14/24 12:12/14/24 12:12/14/24 12:00 Narrative Exam General: No acute distress, well nourished Eye: PERRL, EOMI, normal conjunctiva, no scleral icterus HENT: Normocephalic, atraumatic, hearing intact to conversation at normal volume, moist oral mucosa Neck: Supple, non-tender, no JVD, no lymphadenopathy Lungs: Non-labored respirations, symmetric chest rise, Expiratory wheezing noted. Heart: Peripheral pulses intact bilaterally, Regular Rate and Rhythm Abdomen: Soft, non-tender, non-distended Musculoskeletal: Normal range of motion and strength Skin: Skin is warm, dry, no rashes or lesions. Psychiatric: Cooperative, appropriate mood and affect Neuro: Cranial nerves II-XII grossly intact. Strength 5/5 throughout. Sensations intact to light touch. Discharge Plan Plan Patient Disposition: HOME (Self Care) Patient condition on transfer: Stable Care Plan Goals: Instructions: -Please take nitrofuratoin 100 mg orally to complete 5 days of antibiotics for UTI. -Midodrine 5 mg, up to three times daily for low blood pressure <120. -Please take iron supplements every other day for your iron deficiency, for the next 1 month. Please re-evaluate in the next 2-3 months. -Continue rest of your medication as prescribed -Please follow up with your primary care provider within one week of discharge -If your symptoms worsen,please seek immediate medical attention and return to your nearest emergency room -If you do not have a primary care provider, you may follow up at the [facility] at [address] [place] [address] [address], [place] [address], Prescriptions/Referrals Prescriptions/Med Rec: New nitrofurantoin macrocrystal 100 mg capsule 100 mg PO BID 5 Days Qty: 10 0RF Rx Instructions: must administer with a meal/food midodrine 5 mg Tablet 5 mg PO TID PRN (Reason: sbp <100) 30 Days Qty: 90 0RF ferrous sulfate 325 mg (65 mg iron) tablet,delayed release (DR/EC) 325 mg PO Q OTHER DAY 30 Days Qty: 15 0RF Continued Trelegy Ellipta 100-62.5-25 mcg blister with device 1 inh inhalation QDAY 30 Days Qty: 60 3RF furosemide 40 mg tablet 40 mg PO QDAY Patient Comments: TAKE ONE TABLET BY MOUTH EVERY MORNING A DIURETIC aspirin 81 mg tablet,delayed release (DR/EC) 81 mg PO QDAY Patient Comments: TAKE ONE TABLET BY MOUTH EVERY DAY FOR THE HEART FOR CIRCULATION metoprolol succinate 25 mg tablet extended release 24 hr 25 mg PO QDAY Patient Comments: TAKE ONE TABLET BY MOUTH EVERY DAY FOR BLOOD PRESSURE Entresto 24-26 mg tablet 1 tab PO BID cetirizine 10 mg tablet 10 mg PO QDAY clopidogrel 75 mg tablet 75 mg PO QDAY Tamar-Melissa Rx 1-60-300 mg-mg-mcg tablet 1 tab PO QDAY carvedilol 3.125 mg tablet 3.125 mg PO BID Patient Comments: TAKE 1 TABLET BY MOUTH TWICE A DAY WITH FOOD FOR 30 DAYS albuterol sulfate 90 mcg/actuation HFA aerosol inhaler 1 puff INHALATION Q6H PRN (Reason: RESCUE INHALER ) Patient Comments: INHALE 2 PUFFS EVERY 4 TO 6 HOURS NEEDED Eliquis 5 mg tablet 5 mg PO BID Patient Comments: TAKE 1 TABLET BY MOUTH TWICE A DAY FOR 30 DAYS Discontinued clonidine HCl 0.1 mg tablet 0.1 mg PO DAILY Patient Comments: TAKE 1 TABLET BY MOUTH TWICE A DAY Referrals: Rivas Guajardo PA-C [Primary Care Provider] - Patient/Caregiver Discharge Instructions Discharge Activity: activity as tolerated Education Materials: Anemia Print Language: Belarusian Stand Alone Forms: Armida Award Info., Patient Portal Info Letter Discharge Order Discharge Orders: Discharge (Routine); Ordered 12/14/24 Ordered By: Joslyn Edwards Quality Discharge Quality Measures VTE prophylaxis MD Attestestation MD Attestation I attest that I was physically present for the evaluation, physical examination, lab and imaging review of the patient with the residents. I discussed the case with the residents and agree with the findings and plans of care as documented above. Mary Verdugo MD
--- NOTE | 2024-12-14 19:51 | ESPR_ITS ---
Documentation for date of: 12/14/24 Subjective Subjective Interval history: Late entry for the note Case discussed with internal medicine team Okay to discharge patient home Upper endoscopy showed angiodysplasias stomach requiring bipolar gold heater probe Colonoscopy showed rectal polyp removal as well as diverticulosis left colon If patient continues to drop in hemoglobin hematocrit as an outpatient She should have a capsule endoscopy and I can see her as an outpatient Exam Vital Signs Temp Pulse Resp BP Pulse Ox O2 Del Method O2 Flow Rate 97.2 F 70 15 100/57 L 97 Nasal Cannula 1 12/14/24 12:00 12/14/24 12:00 12/14/24 12:00 12/14/24 12:00 12/14/24 12:00 12/14/24 12:00 12/14/24 12:00 Objective Labs 12/14/24 11:48 12/14/24 04:38 Labs: Laboratory Results - last 24 hr 12/14/24 12/14/24 04:38 11:48 WBC 7.5 RBC 3.76 L Hgb 8.8 L 9.1 L Hct 27.4 L 28.6 L MCV 73 L MCH 23.4 L MCHC 32.1 RDW Std Deviation 45.4 Plt Count 280 Neut % (Auto) 59 Lymph % (Auto) 29 Victoria % (Auto) 9 Eos % (Auto) 1 Baso % (Auto) 1 Neut # (Auto) 4.5 Lymph # (Auto) 2.2 Victoria # (Auto) 0.7 Eos # (Auto) 0.1 Baso # (Auto) 0.1 Immature Gran # (Auto) 0.02 H Absolute Nucleated RBC 0.00 Immature Gran % 0 Nucleated RBC % 0 Sodium 138 Potassium 4.0 Chloride 101 Carbon Dioxide 27.3 Anion Gap 10 BUN 15 Creatinine 1.5 H Estim Creat Clear Calc 43.0 L eGFR 39 L BUN/Creatinine Ratio 10 L Glucose 99 Calculated Osmolality 276 Calcium 9.0 Corrected Calcium 9.3 Phosphorus 3.9 Magnesium 1.7 Total Bilirubin 0.3 AST 12 ALT 7 L Alkaline Phosphatase 65 Total Protein 6.0 Albumin 3.6 D Globulin 2.4 Albumin/Globulin Ratio 1.5 Impressions Impression: Angiodysplasias gastric status post bipolar gold heater probe Rectal polyp Diverticulosis sigmoid colon and descending colon Outpatient follow-up Avoid NSAIDs Assessment & Plan A&P Narrative Posthemorrhagic anemia Plan Iron panel B12 folate Reticulocyte count Stool for occult blood Consent obtained for fiberoptic esophagogastroduodenoscopy with possible biopsy possible therapeutic intervention under intravenous moderate sedation N.p.o. midnight tonight If the upper endoscopy is negative we will consider doing a fiberoptic colonoscopy after GoLytely prep Other medical problems include COPD Atrial fibrillation on Eliquis and Plavix Essential hypertension Dizziness vertigo weakness most likely due to GI blood losses and low hemoglobin hematocrit Thank you very much for the opportunity to participate in the care of this patient Time Spent With Patient Time: Total time spent is greater than 50% in coordination of care (as documented) at patient's floor/unit and/or counseling patient:
== END 2024-12-14 14:25 | disposition home or self-care (01) | DRG 253 ==
LOC: SERX 15:12 → SERHOLD 17:52 → S3SX 12-12 16:25 → SERHOLD 12-13 05:40
PROVIDERS: Nurse Practitioner Primary Care; Specialist; Admitting Provider Student in an Organized Health Care Education/Training Program; Emergency Provider Emergency Medicine; PCP Physician Assistant
PROC: 0W3P8ZZ Control Bleeding in Gastrointestinal Tract, Via Natural or Artificial Opening Endoscopic (ICD-10-PCS; CPT 43239; principal; 2024-12-12 17:45)
PROC: 0DJD8ZZ Inspection of Lower Intestinal Tract, Via Natural or Artificial Opening Endoscopic (ICD-10-PCS; CPT 45378; principal; 2024-12-13 16:00)
DX: K31.811 Angiodysplasia of stomach and duodenum with bleeding (principal); D62 Acute posthemorrhagic anemia; I50.42 Chronic combined systolic (congestive) and diastolic (congestive) heart failure; I11.0 Hypertensive heart disease with heart failure; J44.9 Chronic obstructive pulmonary disease, unspecified; N17.9 Acute kidney failure, unspecified; I48.0 Paroxysmal atrial fibrillation; F10.10 Alcohol abuse, uncomplicated; I73.9 Peripheral vascular disease, unspecified; I20.89 Other forms of angina pectoris; E78.5 Hyperlipidemia, unspecified; D12.8 Benign neoplasm of rectum; K64.9 Unspecified hemorrhoids; K57.30 Diverticulosis of large intestine without perforation or abscess without bleeding; N39.0 Urinary tract infection, site not specified; I95.9 Hypotension, unspecified; I08.3 Combined rheumatic disorders of mitral, aortic and tricuspid valves; Z87.891 Personal history of nicotine dependence; Z79.01 Long term (current) use of anticoagulants; Z87.440 Personal history of urinary (tract) infections; Z95.820 Peripheral vascular angioplasty status with implants and grafts; Z90.710 Acquired absence of both cervix and uterus; Z79.02 Long term (current) use of antithrombotics/antiplatelets; Z79.82 Long term (current) use of aspirin; Z79.899 Other long term (current) drug therapy; Z91.018 Allergy to other foods
CPT/HCPCS: 36415; 36430; 71045; 80053; 81001; 82270; 82607; 82746; 83540; 83550; 83605; 83735; 83880; 84100; 84145; 84443; 84484; 85014; 85018; 85025; 85046; 85610; 85730; 86850; 86900; 86901; 86923; 87040; 87400; 87811; 93005; 93225; 94640; 96365; 96375; 99284; J0696; J1200; J1938; J2250; J2470; J3010; J7070; P9016; Q0162; A9270

== ENCOUNTER 2024-12-17 09:23 | Outpatient (AMB) | payer MEDICAID, SELFPAY ==
[2024-12-17 09:44] VITALS: BP 127/81; PULSE 89; RESP 16; TEMP 36.1; O2SAT 95; BMI 23.7
--- NOTE | 2024-12-17 09:44 | ACNOTE_ITS ---
Vital Signs 12/17/24 09:44 Height 1.73 m Height Method Stated Weight 70.817 kg Weight Measurement Method Standing Scale BMI 23.7 BP 127/81 Blood Pressure Source Automatic Cuff Blood Pressure Location Left Upper Arm Position Sitting Respiration 16 Pulse 89 Pulse Source Monitor Temp 96.9 F Temp Source Oral Pulse Oximetry (%) 95 Oxygen Delivery Method Room Air Allergies/Meds Allergies & Medications Allergies blueberry Allergy (Severe, Verified 12/17/24 09:46) Vomiting coconut Allergy (Severe, Verified 12/17/24 09:46) Vomiting Medication Reconciliation fluticasone fur. 100 mcg-umeclid 62.5 mcg-vilant 25 mcg inhalat.powder (Trelegy Ellipta) 1 inh inhalation QDAY 30 days #60 ea 05/08/23 [Rx Confirmed 12/17/24] albuterol sulfate 90 mcg/actuation aerosol inhaler 1 puff inhalation Q6H PRN RESCUE INHALER 08/06/23 [History Confirmed 12/17/24] apixaban 5 mg tablet (Eliquis) 5 mg PO BID 08/06/23 [History Confirmed 12/17/24] aspirin 81 mg tablet,delayed release 81 mg PO QDAY 12/11/24 [History Confirmed 12/17/24] carvedilol 3.125 mg tablet 3.125 mg PO BID 12/11/24 [History Confirmed 12/17/24] cetirizine 10 mg tablet 10 mg PO QDAY 12/11/24 [History Confirmed 12/17/24] clopidogrel 75 mg tablet 75 mg PO QDAY 12/11/24 [History Confirmed 12/17/24] furosemide 40 mg tablet 40 mg PO QDAY 12/11/24 [History Confirmed 12/17/24] metoprolol succinate 25 mg tablet,extended release 24 hr 25 mg PO QDAY 12/11/24 [History Confirmed 12/17/24] sacubitril 24 mg-valsartan 26 mg tablet (Entresto) 1 tab PO BID 12/11/24 [History Confirmed 12/17/24] vitamin B comp no.3-folic acid 1 mg-vit C 60 mg-biotin 300 mcg tablet (Tamar-Melissa Rx) 1 tab PO QDAY 12/11/24 [History Confirmed 12/17/24] ferrous sulfate 325 mg (65 mg iron) tablet,delayed release 325 mg PO Q OTHER DAY 1 month #15 tabs 12/14/24 [Rx Confirmed 12/17/24] midodrine 5 mg tablet 5 mg PO TID PRN sbp <100 1 month #90 tabs 12/14/24 [Rx Confirmed 12/17/24] MA Intake Visit Data Collection New Patient or Established: Established Patient (seen at [facility] within 3 years) Seen by Clinical Staff ONLY (RN/MA): No Reason for Visit:: EMERGENCY ROOM FOLLOW UP Pain Present Currently: No Pain scale:: 0 Pain Scale Used: Villagran-Whitney/Numerical Senior Office Assistant Required: No PCP or OBGYN visit in last 3 months: Yes Hx Now: No Smoking Status Smoking Status: Former smoker Immunization / Flu Flu Vaccine in the Last 12 Months: No Flu Vaccine Exclusion Criteria: No Exclusion Criteria Past Medical History Past Medical History NEUROLOGIC: Negative Neurological Disorders or Seizures CARDIAC: Positive Cardiac Disorders, Peripheral Vascular Disease and Hypertension; Negative Congestive Heart Failure or Hypotension RESPIRATORY: Positive Chronic Obstructive Pulmonary Disease (COPD), Bronchitis and Pneumonia GENITOURINARY: Negative Renal Disease ENDOCRINE: Negative Endocrine Disorders, Diabetes Mellitus Type 1 or Diabetes Mellitus Type 2 HEMATOLOGIC: Positive Anemia OTHER HISTORY: Positive Blood Transfusions; Negative Blood Transfusion Reaction or Anesthesia Reactions Family History FAMILY HISTORY: Positive Family Cardiac Disorders; Negative Family Psychiatric Problems, Family Respiratory Disorders or Family Gastrointestinal Problems Surgical History SURGICAL: Positive Vascular Surgery and Hysterectomy Social History SMOKING STATUS: Smoking status: Former smoker SECOND HAND EXPOSURE: second hand exposure: No ALCOHOL: Alcohol Intake: Former ALCOHOL FREQUENCY: Alcohol Intake Frequency: A Few Times a Week HOUSING: Housing: [facility] LIVES WITH: Lives With: Significant Other Patient Portal Questionaires PHQ-9 PHQ-2 Over the last 2 weeks, how often have you been bothered by any of the following problems? 1. Little interest or pleasure in doing things: not at all 2. Feeling down, depressed, or hopeless: not at all Total score: 0 PHQ-9 3. Trouble falling or staying asleep, or sleeping too much: Not at all 4. Feeling tired or having little energy: Not at all 5. Poor appetite or overeating: Not at all 6. Feeling bad about yourself - or that you are a failure or have let yourself or your family down: Not at all 7. Trouble concentrating on things, such as reading the newspaper or watching television: Not at all 8. Moving or speaking so slowly that other people could have noticed? - Or the opposite - being so fidgety or restless that you have been moving around a lot more than usual: not at all 9. Thoughts that you would be better off or of hurting yourself in some way: Not at all Total score: 0 Source: Developed by Drs. Ramsey Deras, Barbra Childs, Artur Boston and colleagues, with an educational sil from [employer]. Depression screen completed yes Social History Living Situation History Housing: [employer] Housing Other:: See note Tobacco History Smoking Status: Former smoker Packs per Day: 1 Second Hand Smoke Exposure: No Alcohol History Alcohol Intake: Former Alcohol Intake Frequency: A Few Times a Week Review of Systems Report any current symptoms Only answer those that you have currently: Past Medical History Past Medical History Have you ever been diagnosed with any of the following: Neurological Problems Seizures: No Cardiology Problems Peripheral Vascular Disease: Yes Congestive Heart Failure: No Hypertension: Yes Hypotension: No Respiratory Problems Chronic Obstructive Pulmonary Disease (COPD): Yes Bronchitis: Yes Pneumonia: Yes Genital/Urinary Problems Renal Disease: No Endocrine Problems Diabetes Mellitus Type 1: No Diabetes Mellitus Type 2: No Blood Problems Anemia: Yes Other Problems Blood Transfusions: Yes Blood Transfusion Reaction: No Anesthesia Reactions: No Surgical History Hysterectomy: Yes History of Present Illness HPI Narrative Mallika Ward is a 64-year-old female with a past medical history of paroxysmal A-fib/flutter with RVR (not on AC due to GI bleed), HFrEF (EF 25 to 40% on 07/2023, follows Dr. Hager), PAD status post stents (follows Dr. Thompson), COPD, uterine cancer in 1992 s/p hysterectomy, hypertension who was admitted to [facility] on 12/11 for upper GI bleed and found to have hemoglobin of 8.3 that was previously 9.6 just 11 days prior. Underwent EGD and found to have few recently bleeding angiodysplastic lesions in the stomach that were treated with bipolar cautery and colonoscopy that showed hemorrhoids on perianal exam, moderate diverticulosis in sigmoid colon and descending colon. Discharged with iron pills, midodrine, and nitrofurantoin. She now presents to [facility] and denies any hematemesis, hematochezia, melena. Endorses improvement in her energy stating that it is coming back slowly and feels much better overall compared to the last few weeks. 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 Hamilton), vascular surgery (Dr. Thompson), and cardiology (Dr. Hager) who discontinued Plavix and Eliquis, and pulmonology (Dr. Bynum). Mammogram due, smoked 1 PPD for 40 years but quiet in 2022 so will order both mammogram and low-dose lung CT for screening. Review of Systems Review of Systems Systems Reviewed: All systems reviewed, normal except as documented Objective/Exam Narrative Physical exam: General: AOx3, no acute distress, able to speak full sentences HEENT: NC/AT, mucous membranes moist, bilateral sclera anicteric Cardiovascular: regular rate and rhythm, S1/S2 present, no murmurs appreciated Pulmonary: clear to auscultation bilaterally, no rales/rhonchi/wheezes Abdominal: soft, non-tender, non-distended, no rebound/guarding, normal bowel sounds present Musculoskeletal: normal ROM, no peripheral edema Skin: warm and dry, intact, no rashes Neuro: CN II-XII intact, no focal deficits Assessment & Plan Diagnosis / Problem List (1) Anemia: Status: Acute Qualifiers: Anemia type: iron deficiency Iron deficiency anemia type: unspecified iron deficiency Qualified Code(s): D50.9 - Iron deficiency anemia, unspecified Assessment & Plan: Found to have angiodysplastic lesions on EGD that were cauterized as well as mildly low iron from labs obtained in hospital. Possible contribution from CKD but follows rail crew member, Dr. Hamilton, in [place]. Plan: ? Continue iron supplementation (2) COPD (chronic obstructive pulmonary disease): Status: Acute Qualifiers: COPD type: unspecified COPD Qualified Code(s): J44.9 - Chronic obstructive pulmonary disease, unspecified Assessment & Plan: Smoked 1 pack/day for 40 years but quit in 2022. Plan: ? Continue follow-up with pulmonology, Dr. Bynum ? Albuterol inhaler as needed (3) HFrEF (heart failure with reduced ejection fraction): Status: Acute Assessment & Plan: Last echo in 2023 and showed EF 35 to 40% with stage I diastolic dysfunction. Follows Dr. Hager in [place]. Plan: ? Continue GDMT per cardiology (4) Preventative health care: Status: Acute Plan: ? Mammogram ordered ? Low-dose lung CT ordered Orders: Orders NITIN CAD screening BI 12/17/24 CT lung low-dose screening wo 12/17/24 Office Procedures [facility] Level of Care Nursing/Assessment Patient Status: Established Patient Nursing Assessment/Reassessment: Medication Reconciliation, Update PMH in EMR and Vital Signs Coordination of Care: Complex Care and Chronic Disease 1-5, Consent,records obtained, informed consent, Education Simp Pt/Fam, Lab and Imaging orders, Results/Orders obtained and Staff clarify orders Established Patient Charge Established Patient Point Assignment: 105 Established Patient Point Charge: EP Level 3 (80-115) OB Clinic LOC & Office Proc's Nursing/Assessment Patient Status: Established Patient OB Clinic Nursing Assessment: Medication Reconciliation, Update PMH in EMR and Vital Signs Established Patient Charge Established Patient Point Assignment: 30
== END 2024-12-17 10:21 | disposition home or self-care (01) ==
LOC: HODAHC 09:23
PROVIDERS: PCP Physician Assistant; Referring Provider Physician Assistant
DX: D50.9 Iron deficiency anemia, unspecified (principal); J44.9 Chronic obstructive pulmonary disease, unspecified; Z87.891 Personal history of nicotine dependence; I50.20 Unspecified systolic (congestive) heart failure
CPT/HCPCS: 99213; G0463

== ENCOUNTER 2025-01-14 09:12 | Outpatient (AMB) | payer MEDICAID, SELFPAY ==
[2025-01-14 09:23] VITALS: BP 135/81; PULSE 82; RESP 18; TEMP 36.4; O2SAT 95; BMI 23.9
--- NOTE | 2025-01-14 09:23 | PD.RESCLINIC ---
Vital Signs 01/14/25 09:23 Height 1.73 m Height Method Stated Weight 71.668 kg Weight Measurement Method Standing Scale BMI 23.9 BP 135/81 H Blood Pressure Source Automatic Cuff Blood Pressure Location Left Upper Arm Position Sitting Respiration 18 Pulse 82 Pulse Source Monitor Temp 97.6 F Temp Source Oral Pulse Oximetry (%) 95 Oxygen Delivery Method Room Air Allergies/Meds Allergies & Medications Allergies blueberry Allergy (Severe, Verified 01/14/25 09:24) Vomiting coconut Allergy (Severe, Verified 01/14/25 09:24) Vomiting Medication Reconciliation fluticasone fur. 100 mcg-umeclid 62.5 mcg-vilant 25 mcg inhalat.powder (Trelegy Ellipta) 1 inh inhalation QDAY 30 days #60 ea 05/08/23 [Rx Confirmed 01/14/25] albuterol sulfate 90 mcg/actuation aerosol inhaler 1 puff inhalation Q6H PRN RESCUE INHALER 08/06/23 [History Confirmed 01/14/25] carvedilol 3.125 mg tablet 3.125 mg PO BID 12/11/24 [History Confirmed 01/14/25] cetirizine 10 mg tablet 10 mg PO QDAY 12/11/24 [History Confirmed 01/14/25] furosemide 40 mg tablet 40 mg PO QDAY 12/11/24 [History Confirmed 01/14/25] metoprolol succinate 25 mg tablet,extended release 24 hr 25 mg PO QDAY 12/11/24 [History Confirmed 01/14/25] sacubitril 24 mg-valsartan 26 mg tablet (Entresto) 1 tab PO BID 12/11/24 [History Confirmed 01/14/25] vitamin B comp no.3-folic acid 1 mg-vit C 60 mg-biotin 300 mcg tablet ([facility]) 1 tab PO QDAY 12/11/24 [History Confirmed 01/14/25] MA Intake Visit Data Collection New Patient or Established: Established Patient (seen at [facility] within 3 years) Seen by Clinical Staff ONLY (RN/SERGEY): No Pain Present Currently: No Pain scale:: 0 Pain Scale Used: Villagran-Whitney/Numerical PCP or OBGYN visit in last 3 months: Yes Smoking Status Smoking Status: Former smoker Immunization / Flu Flu Vaccine in the Last 12 Months: No Flu Vaccine Exclusion Criteria: No Exclusion Criteria Past Medical History Past Medical History NEUROLOGIC: Negative Neurological Disorders or Seizures CARDIAC: Positive Cardiac Disorders, Peripheral Vascular Disease and Hypertension; Negative Congestive Heart Failure or Hypotension RESPIRATORY: Positive Chronic Obstructive Pulmonary Disease (COPD), Bronchitis and Pneumonia GENITOURINARY: Negative Renal Disease ENDOCRINE: Negative Endocrine Disorders, Diabetes Mellitus Type 1 or Diabetes Mellitus Type 2 HEMATOLOGIC: Positive Anemia OTHER HISTORY: Positive Blood Transfusions; Negative Blood Transfusion Reaction or Anesthesia Reactions Family History FAMILY HISTORY: Positive Family Cardiac Disorders; Negative Family Psychiatric Problems, Family Respiratory Disorders or Family Gastrointestinal Problems Surgical History SURGICAL: Positive Vascular Surgery and Hysterectomy Social History SMOKING STATUS: Smoking status: Former smoker SECOND HAND EXPOSURE: second hand exposure: No ALCOHOL: Alcohol Intake: Former ALCOHOL FREQUENCY: Alcohol Intake Frequency: A Few Times a Week HOUSING: Housing: [employer] LIVES WITH: Lives With: Significant Other Patient Portal Questionaires PHQ-9 PHQ-2 Over the last 2 weeks, how often have you been bothered by any of the following problems? 1. Little interest or pleasure in doing things: not at all PHQ-9 8. Moving or speaking so slowly that other people could have noticed? - Or the opposite - being so fidgety or restless that you have been moving around a lot more than usual: not at all Source: Developed by Drs. Ramsey Deras, Barbra Childs, Artur Boston and colleagues, with an educational sil from [employer]. Social History Living Situation History Housing: trail[employer] Housing Other:: See note Tobacco History Smoking Status: Former smoker Packs per Day: 1 Second Hand Smoke Exposure: No Alcohol History Alcohol Intake: Former Alcohol Intake Frequency: A Few Times a Week Review of Systems Report any current symptoms Only answer those that you have currently: Past Medical History Past Medical History Have you ever been diagnosed with any of the following: Neurological Problems Seizures: No Cardiology Problems Peripheral Vascular Disease: Yes Congestive Heart Failure: No Hypertension: Yes Hypotension: No Respiratory Problems Chronic Obstructive Pulmonary Disease (COPD): Yes Bronchitis: Yes Pneumonia: Yes Genital/Urinary Problems Renal Disease: No Endocrine Problems Diabetes Mellitus Type 1: No Diabetes Mellitus Type 2: No Blood Problems Anemia: Yes Other Problems Blood Transfusions: Yes Blood Transfusion Reaction: No Anesthesia Reactions: No Surgical History Hysterectomy: Yes History of Present Illness HPI Narrative Mallika Ward is a 64-year-old female with a past medical history of paroxysmal A-fib/flutter with RVR (not on AC due to GI bleed), HFrEF (EF 25 to 40% on 07/2023, follows Dr. Hager), PAD status post stents (follows Dr. Thompson), COPD (follows Dr. Street), uterine cancer in 1992 s/p hysterectomy, and hypertension who was admitted to [facility] on 12/11 for upper GI bleed and found to have hemoglobin of 8.3 that was previously 9.6 just 11 days prior. Underwent EGD and found to have few recently bleeding angiodysplastic lesions in the stomach that were treated with bipolar cautery and colonoscopy that showed hemorrhoids on perianal exam, moderate diverticulosis in sigmoid colon and descending colon. Discharged with iron pills, midodrine, and nitrofurantoin. She presents to [facility] for follow-up and and denies any hematemesis, hematochezia, or melena. Continues to endorse improvement in her energy levels, though she does at times become short of breath after ~20 minutes of activity, which she attributes to her COPD. Of note, she mclaughlin shave oxygen at home but is only as needed. Mammogram and low-dose lung CT ordered last visit but patient states she was not contacted and will follow-up. Otherwise, she has another vascular procedure on 03/10/[address] Hager soon thereafter. Will continue current management at this time, follow-up on imaging, and have patient RTC 1 week or so after her procedure. Objective/Exam Narrative Physical exam: General: AOx3, no acute distress, able to speak full sentences HEENT: NC/AT, mucous membranes moist, bilateral sclera anicteric Cardiovascular: regular rate and rhythm, S1/S2 present, no murmurs appreciated Pulmonary: clear to auscultation bilaterally, no rales/rhonchi/wheezes Abdominal: soft, non-tender, non-distended, no rebound/guarding, normal bowel sounds present Musculoskeletal: normal ROM, no peripheral edema Skin: warm and dry, intact, no rashes Neuro: CN II-XII intact, no focal deficits Assessment & Plan Diagnosis / Problem List (1) Preventative health care: Status: Acute Plan: ? Mammogram ordered ? Low-dose lung CT ordered ? Follow-up in ~2 months/after vascular procedure with Dr. Thompson (2) Anemia: Status: Acute Qualifiers: Anemia type: iron deficiency Iron deficiency anemia type: unspecified iron deficiency Qualified Code(s): D50.9 - Iron deficiency anemia, unspecified Assessment & Plan: Found to have angiodysplastic lesions on EGD that were cauterized as well as mildly low iron from labs obtained in hospital. Possible contribution from CKD but follows paid search marketing strategist, Dr. Hamilton, in [place]. Plan: ? Continue iron supplementation (3) COPD (chronic obstructive pulmonary disease): Status: Acute Qualifiers: COPD type: unspecified COPD Qualified Code(s): J44.9 - Chronic obstructive pulmonary disease, unspecified Assessment & Plan: Smoked 1 pack/day for 40 years but quit in 2022. Plan: ? Continue follow-up with pulmonology, Dr. Bynum ? Albuterol inhaler as needed (4) HFrEF (heart failure with reduced ejection fraction): Status: Acute Assessment & Plan: Last echo in 2023 and showed EF 35 to 40% with stage I diastolic dysfunction. Follows Dr. Hager in [place]. Of note, no longer on anticoagulation or antiplatelet therapy due to GI bleed. Plan: ? Continue GDMT per cardiology Office Procedures [facility] Level of Care Nursing/Assessment Patient Status: Established Patient Nursing Assessment/Reassessment: Medication Reconciliation, Update PMH in EMR and Vital Signs Coordination of Care: Complex Care and Chronic Disease 1-5, Education Complex Pt/Fam, 2-3 Insurance Autorizations needed and Results/Orders obtained Established Patient Charge Established Patient Point Assignment: 100 Established Patient Point Charge: EP Level 3 (80-115)
== END 2025-01-14 10:04 | disposition home or self-care (01) ==
LOC: HODAHC 09:12
PROVIDERS: PCP Physician Assistant; Referring Provider Physician Assistant
DX: J44.9 Chronic obstructive pulmonary disease, unspecified (principal); D50.9 Iron deficiency anemia, unspecified; I50.20 Unspecified systolic (congestive) heart failure; Z87.891 Personal history of nicotine dependence
CPT/HCPCS: 99213; G0463